=== PATIENT | male | born 1950 | race Caucasian/White ===

== ENCOUNTER 2016-08-31 11:10 | Emergency (ER) | payer MEDICARE ==
[2016-08-31 11:18] VITALS: BP 127/59; PULSE 58; RESP 20; TEMP 98.1
--- NOTE | 2016-08-31 11:36 | ED ---
Extremity Problem HPI - General Chief complaint: Extremity Problem,Nontraumatic Stated complaint: hip pain Time Seen by Provider: 08/31/16 11:26 Source: patient Mode of arrival: wheelchair Limitations: no limitations - History of Present Illness Initial comments: This patient is a 65-year-old man who presents with complaint that he thinks that his left hip replacement may be wearing out. The patient states that over the past few months he has been hearing noises when he walks, and he states that he seems to be losing some range of motion. He states that the hip also aches at times. Patient states that he had a replacement approximately [address] Parra, and he has not recently followed up with anyone. Patient denies symptoms of infection, including no fever or chills, no erythema , redness or swelling. He has been able to bear weight. He states that he does occasionally get some aching though it is not terrible today. He does also appear some grinding in the hip at times when he walks, though other times the noises is not there. MD Complaint: joint paint -: week(s) Location: left (Hip) History of Same: Yes -: Yes arthralgia Quality: dull Consistency: intermittent Improves with: nothing Worsens with: walking Associated Symptoms: denies other symptoms - Related Data Home Medications Medication Instructions Recorded Confirmed Aspirin 81 mg PO DAILY 09/16/14 08/31/16 Atenolol [Tenormin] 25 mg PO DAILY 09/16/14 08/31/16 Atorvastatin [Lipitor] 40 mg PO HS 01/16/16 08/31/16 Isosorbide Mononitrate ER [Imdur] 60 mg PO DAILY 01/16/16 08/31/16 Lisinopril [Zestril] 20 mg PO DAILY 01/16/16 08/31/16 Ibuprofen [Motrin] 800 mg PO Q8H PRN 08/31/16 08/31/16 Nitroglycerin Sl Tabs [Nitrostat] 0.4 mg SUBLINGUAL Q5M PRN 08/31/16 08/31/16 Previous Rx's Medication Instructions Recorded Ibuprofen [Motrin] 600 mg PO Q8HR PRN #20 tab 08/31/16 Allergies Allergy/AdvReac Type Severity Reaction Status Date / Time No Known Allergies Allergy Verified 08/31/16 11:55 Review of Systems ROS Statement: Those systems with pertinent positive or pertinent negative responses have been documented in the HPI. ROS Other: All systems not noted in ROS Statement are negative. Constitutional: Denies: fever, chills Respiratory: Denies: cough, dyspnea Cardiovascular: Denies: chest pain, palpitations Musculoskeletal: Reports: as per HPI, arthralgia. Denies: back pain, joint swelling Skin: Denies: rash, lesions Neurological: Denies: weakness, numbness Past Medical History Past Medical History: Chest Pain / Angina, CVA/TIA, Hyperlipidemia, Hypertension , Osteoarthritis (OA) Additional Past Medical History / Comment(s): CVA-15 yrs ago-no effects from, History of Any Multi-Drug Resistant Organisms: None Reported Past Surgical History: Appendectomy, Heart Catheterization With Stent, Joint Replacement Additional Past Surgical History / Comment(s): jeffery hip replacements, deviated septum, Past Anesthesia/Blood Transfusion Reactions: No Reported Reaction Date of Last Stent Placement:: 15 yrs ago approx Past Psychological History: No Psychological Hx Reported Smoking Status: Former smoker Past Alcohol Use History: None Reported Past Drug Use History: Marijuana - Past Family History Mother Family Medical History: Cancer Additional Family Medical History / Comment(s): blood clot- not sure in legs or lungs Father Family Medical History: Cancer General Exam Limitations: no limitations General appearance: alert, in no apparent distress Extremities exam: Present: normal inspection, full ROM, normal capillary refill. Absent: tenderness, pedal edema, joint swelling, calf tenderness Back exam: Absent: vertebral tenderness Neurological exam: Present: alert. Absent: motor sensory deficit Skin exam: Present: warm, dry, intact, normal color. Absent: rash Course Vital Signs 08/31/16 11:16 Temperature 98.1 F Pulse Rate 58 L Respiratory 20 Rate Blood Pressure 127/59 O2 Sat by Pulse 98 Oximetry Medical Decision Making - Medical Decision Making Discussed x-ray finding with the patient and recommendation that he see orthopedic surgery, I suspect he will need replacement of the prosthetic hip Disposition Clinical Impression: Hip pain, left Disposition: HOME SELF-CARE Condition: Fair Instructions: Hip Pain (ED) Prescriptions: Ibuprofen [Motrin] 600 mg PO Q8HR PRN #20 tab PRN Reason: Pain Referrals: Harris Arango III, MD [Primary Care Provider] - 1-2 days Slava Mccullough MD [STAFF PHYSICIAN] - 1-2 days
--- NOTE | 2016-08-31 11:59 | XR ---
EXAMINATION TYPE: XR Hip Complete LT DATE OF EXAM: 08/31/2016 CLINICAL HISTORY: pain TECHNIQUE: AP and frogleg views of the left hip are obtained. COMPARISON: None. FINDINGS: Noted are changes of left total hip arthroplasty. Femoral component does not appear to be c entered within the acetabular component and a degree of subluxation is difficult to exclude. Correlat e clinically and if felt to be indicated consider CT. I do not see evidence for an acute fracture. IMPRESSION: 1. Femoral component does not appear to be centered within the acetabular component and a degree of subluxation is difficult to exclude. Correlate clinically and if felt to be indicated consider a CT.
== END 2016-08-31 12:22 | disposition home or self-care (01) ==
LOC: EC 11:10
DX: M25.552 Pain in left hip (principal); E78.5 Hyperlipidemia, unspecified; I10 Essential (primary) hypertension; M19.90 Unspecified osteoarthritis, unspecified site; Z87.891 Personal history of nicotine dependence; Z79.82 Long term (current) use of aspirin; Z79.899 Other long term (current) drug therapy; Z96.643 Presence of artificial hip joint, bilateral; Z86.79 Personal history of other diseases of the circulatory system
CPT/HCPCS: 73502; 99283

== ENCOUNTER 2016-09-24 10:23 | Observation (INO) | payer MEDICARE ==
[2016-09-24] MEDS ORDERED: SODIUM CHLORIDE 0.9% 500 ML IV STA (10:45)
[2016-09-24] MEDS ORDERED: SODIUM CHLORIDE 0.9% 1,000 ML IV STA (10:45)
--- NOTE | 2016-09-24 10:47 | ED ---
General Adult HPI - General Chief complaint: Chest Pain Stated complaint: chest pain Time Seen by Provider: 09/24/16 10:44 Source: patient, RN notes reviewed, old records reviewed Mode of arrival: ambulatory Limitations: no limitations - History of Present Illness Initial comments: This is a 65-year-old male the ER for evaluation today of chest pain. Patient coming in with 2-3 days of chest pain. Chest pain is anterior heaviness and difficulty breathing. No Tenderness no fevers. Patient does have significant cardiac disease with history of CAD and stents. No central blister sick contacts. No change in medications. - Related Data Home Medications Medication Instructions Recorded Confirmed Aspirin 81 mg PO DAILY 09/16/14 09/24/16 Atenolol [Tenormin] 25 mg PO DAILY 09/16/14 09/24/16 Atorvastatin [Lipitor] 40 mg PO HS 01/16/16 09/24/16 Isosorbide Mononitrate ER [Imdur] 60 mg PO DAILY 01/16/16 09/24/16 Lisinopril [Zestril] 20 mg PO DAILY 01/16/16 09/24/16 Ibuprofen [Motrin] 800 mg PO Q8H PRN 08/31/16 09/24/16 Nitroglycerin Sl Tabs [Nitrostat] 0.4 mg SUBLINGUAL Q5M PRN 08/31/16 09/24/16 Allergies Allergy/AdvReac Type Severity Reaction Status Date / Time No Known Allergies Allergy Verified 09/24/16 10:38 Review of Systems ROS Statement: Those systems with pertinent positive or pertinent negative responses have been documented in the HPI. ROS Other: All systems not noted in ROS Statement are negative. Past Medical History Past Medical History: Chest Pain / Angina, CVA/TIA, Hyperlipidemia, Hypertension , Osteoarthritis (OA) Additional Past Medical History / Comment(s): CVA-15 yrs ago-no effects from, History of Any Multi-Drug Resistant Organisms: None Reported Past Surgical History: Appendectomy, Heart Catheterization With Stent, Joint Replacement Additional Past Surgical History / Comment(s): jeffery hip replacements, deviated septum, Past Anesthesia/Blood Transfusion Reactions: No Reported Reaction Date of Last Stent Placement:: 15 yrs ago approx Past Psychological History: No Psychological Hx Reported Smoking Status: Former smoker Past Alcohol Use History: None Reported Past Drug Use History: None Reported - Past Family History Mother Family Medical History: Cancer Additional Family Medical History / Comment(s): blood clot- not sure in legs or lungs Father Family Medical History: Cancer General Exam Limitations: no limitations General appearance: alert, in no apparent distress Head exam: Present: atraumatic, normocephalic, normal inspection Eye exam: Present: normal appearance, PERRL, EOMI. Absent: scleral icterus, conjunctival injection, periorbital swelling ENT exam: Present: normal exam, mucous membranes moist Neck exam: Present: normal inspection. Absent: tenderness, meningismus, lymphadenopathy Respiratory exam: Present: normal lung sounds bilaterally. Absent: respiratory distress, wheezes, rales, rhonchi, stridor Cardiovascular Exam: Present: regular rate, normal rhythm, normal heart sounds. Absent: systolic murmur, diastolic murmur, rubs, gallop, clicks GI/Abdominal exam: Present: soft, normal bowel sounds. Absent: distended, tenderness, guarding, rebound, rigid Extremities exam: Present: normal inspection, full ROM, normal capillary refill. Absent: tenderness, pedal edema, joint swelling, calf tenderness Back exam: Present: normal inspection Neurological exam: Present: alert, oriented X3, CN II-XII intact Psychiatric exam: Present: normal affect, normal mood Skin exam: Present: warm, dry, intact, normal color. Absent: rash Course Vital Signs 09/24/16 09/24/16 10:26 11:37 Temperature 97.7 F Pulse Rate 57 L 60 Respiratory 18 18 Rate Blood Pressure 170/72 174/76 O2 Sat by Pulse 96 97 Oximetry EKG Findings - EKG Comments: EKG Findings:: EKG shows sinus bradycardia rate of 53, GA 136, QRS 100, QTC 410 Medical Decision Making - Medical Decision Making 60 formality ER for evaluation concerning chest pain. History of heart disease. Initial EKG and troponin were negative. Patient be admitted for cardiac observation, anticoagulation serial troponins and telemetry. - Lab Data Result diagrams: 09/24/16 10:44 09/24/16 10:44 Lab Results 09/24/16 09/24/16 09/24/16 Range/Units 10:44 10:44 10:44 WBC 7.8 (3.8-10.6) k/uL RBC 5.22 (4.30-5.90) m/uL Hgb 15.6 (13.0-17.5) gm/dL Hct 45.6 (39.0-53.0) % MCV 87.4 (80.0-100.0) fL MCH 29.9 (25.0-35.0) pg MCHC 34.2 (31.0-37.0) g/dL RDW 14.4 (11.5-15.5) % Plt Count 259 (150-450) k/uL Neutrophils % 61 % Lymphocytes % 24 % Monocytes % 7 % Eosinophils % 4 % Basophils % 1 % Neutrophils # 4.8 (1.3-7.7) k/uL Lymphocytes # 1.9 (1.0-4.8) k/uL Monocytes # 0.6 (0-1.0) k/uL Eosinophils # 0.3 (0-0.7) k/uL Basophils # 0.1 (0-0.2) k/uL PT (9.0-12.0) sec INR (<1.2) APTT (22.0-30.0) sec D-Dimer (<0.60) mg/L FEU Sodium 140 (137-145) mmol/L Potassium 4.5 (3.5-5.1) mmol/L Chloride 108 H (98-107) mmol/L Carbon Dioxide 23 (22-30) mmol/L Anion Gap 9 mmol/L BUN 21 H (9-20) mg/dL Creatinine 0.80 (0.66-1.25) mg/dL Est GFR (MDRD) Af Amer >60 (>60 ml/min/1.73 sqM) Est GFR (MDRD) Non-Af >60 (>60 ml/min/1.73 sqM) Glucose 96 (74-99) mg/dL Calcium 9.6 (8.4-10.2) mg/dL Magnesium 2.2 (1.6-2.3) mg/dL Total Bilirubin 0.6 (0.2-1.3) mg/dL AST 36 (17-59) U/L ALT 74 H (21-72) U/L Alkaline Phosphatase 101 (38-126) U/L Total Creatine Kinase 56 (55-170) U/L CK-MB (CK-2) 0.4 (0.0-2.4) ng/mL CK-MB (CK-2) Rel Index 0.7 Troponin I <0.012 (0.000-0.034) ng/mL Total Protein 7.0 (6.3-8.2) g/dL Albumin 4.2 (3.5-5.0) g/dL Lipase 61 (23-300) U/L 09/24/16 Range/Units 10:44 WBC (3.8-10.6) k/uL RBC (4.30-5.90) m/uL Hgb (13.0-17.5) gm/dL Hct (39.0-53.0) % MCV (80.0-100.0) fL MCH (25.0-35.0) pg MCHC (31.0-37.0) g/dL RDW (11.5-15.5) % Plt Count (150-450) k/uL Neutrophils % % Lymphocytes % % Monocytes % % Eosinophils % % Basophils % % Neutrophils # (1.3-7.7) k/uL Lymphocytes # (1.0-4.8) k/uL Monocytes # (0-1.0) k/uL Eosinophils # (0-0.7) k/uL Basophils # (0-0.2) k/uL PT 10.0 (9.0-12.0) sec INR 1.0 (<1.2) APTT 23.2 (22.0-30.0) sec D-Dimer 0.76 H (<0.60) mg/L FEU Sodium (137-145) mmol/L Potassium (3.5-5.1) mmol/L Chloride (98-107) mmol/L Carbon Dioxide (22-30) mmol/L Anion Gap mmol/L BUN (9-20) mg/dL Creatinine (0.66-1.25) mg/dL Est GFR (MDRD) Af Amer (>60 ml/min/1.73 sqM) Est GFR (MDRD) Non-Af (>60 ml/min/1.73 sqM) Glucose (74-99) mg/dL Calcium (8.4-10.2) mg/dL Magnesium (1.6-2.3) mg/dL Total Bilirubin (0.2-1.3) mg/dL AST (17-59) U/L ALT (21-72) U/L Alkaline Phosphatase (38-126) U/L Total Creatine Kinase (55-170) U/L CK-MB (CK-2) (0.0-2.4) ng/mL CK-MB (CK-2) Rel Index Troponin I (0.000-0.034) ng/mL Total Protein (6.3-8.2) g/dL Albumin (3.5-5.0) g/dL Lipase (23-300) U/L - Radiology Data Radiology results: report reviewed, image reviewed Critical Care Time Critical Care Time: Yes Total Critical Care Time: 31 Disposition Clinical Impression: Chest pain Disposition: ADMITTED IP TO THIS HOSP Condition: Undetermined Instructions: Chest Pain (ED) Referrals: Harris Arango III, MD [Primary Care Provider] - 1-2 days
[2016-09-24 11:00] LABS: Basophils # (A) 0.1 k/uL (0-0.2); Basophils % (A) 1 %; CH 29.6; CHCM 34.1; Eosinophils # (A) 0.3 k/uL (0-0.7); Eosinophils % (A) 4 %; HCT 45.6 % (39.0-53.0); HGB 15.6 gm/dL (13.0-17.5); Luc # (Auto) 0.23; Luc % (Auto) 3; Lymphocytes # (A) 1.9 k/uL (1.0-4.8); Lymphocytes % (A) 24 %; MCH 29.9 pg (25.0-35.0); MCHC 34.2 g/dL (31.0-37.0); MCV 87.4 fL (80.0-100.0); Mean Platelet Volume 8.7; Monocytes # (A) 0.6 k/uL (0-1.0); Monocytes % (A) 7 %; Neutrophils # (A) 4.8 k/uL (1.3-7.7); Neutrophils % (A) 61 %; RBC 5.22 m/uL (4.30-5.90); RDW 14.4 % (11.5-15.5); WBC 7.8 k/uL (3.8-10.6); WBC (Perox) 7.32
[2016-09-24 11:13] LABS: ALT 74 U/L (21-72); AST 36 U/L (17-59); Alkaline Phosphatase 101 U/L (38-126); Anion Gap 9 mmol/L; Blood Urea Nitrogen 21 mg/dL (9-20); Calcium 9.6 mg/dL (8.4-10.2); Carbon Dioxide 23 mmol/L (22-30); Chloride 108 mmol/L (98-107); Glucose 96 mg/dL (74-99); Magnesium 2.2 mg/dL (1.6-2.3); Non-African American GFR(MDRD) >60 (>60 ml/min/1.73 sqM); Potassium 4.5 mmol/L (3.5-5.1); Sodium 140 mmol/L (137-145); Total Bilirubin 0.6 mg/dL (0.2-1.3)
[2016-09-24 11:14] LABS: Partial Thromboplastin Time 23.2 sec (22.0-30.0)
[2016-09-24 11:20] LABS: Creatine Kinase 56 U/L (55-170)
[2016-09-24 11:32] LABS: Creatine Kinase MB 0.4 ng/mL (0.0-2.4); Troponin I <0.012 ng/mL (0.000-0.034)
--- NOTE | 2016-09-24 11:38 | XR ---
EXAMINATION TYPE: XR chest 2V DATE OF EXAM: 09/24/2016 COMPARISON: April 15, 2013 HISTORY: Shortness of breath TECHNIQUE: Frontal and lateral views of the chest are obtained. FINDINGS: Scattered senescent parenchymal changes noted. Hyperinflation compatible with COPD. No evidence for infiltrate. No evidence for atelectasis. Heart size is stable. Mediastinal structures are stable and grossly unremarkable. No evidence for hilar prominence. Degenerative changes dorsal spine. IMPRESSION: 1. No evidence for acute pulmonary disease.
[2016-09-24] MEDS ORDERED: HEPARIN SODIUM,PORCINE 5,000 UNIT/ML 1 ML VIAL IV ONE (12:44)
[2016-09-24] MEDS ORDERED: NITROGLYCERIN SL TABS 0.4 MG TAB SUBLINGUAL PRN ×2 (12:44→14:08)
[2016-09-24] MEDS ORDERED: HEPARIN SODIUM,PORCINE 5,000 UNIT/ML 1 ML VIAL IV PRN (12:44)
[2016-09-24] MEDS ORDERED: HEPARIN SODIUM,PORCINE/D5W PMX 25,000 UNIT in DEXTROSE/WATER 1 500ML.BAG IV SCH (12:45)
[2016-09-24] MEDS ORDERED: RX INFO: IV CONTRAST WAS GIVEN 1 EACH MISC MISCELLANE PRN (15:42)
--- NOTE | 2016-09-24 16:13 | P.HPIM ---
History of Present Illness 65-year-old man came in with compensative chest pressure like sensation which started today lasted for a few hours minimal chest pain associated with the cough worsens with cough and deep breathing. Patient had similar chest pain in the past in 2008 where she had a coronary cardiac catheterization and stenting at that time. Patient had another cardiac cath in 2013 which did not show any significant occlusive disease. Patient's pain is not associated with food, denied any diaphoresis denies any shortness of breath denied any lightheadedness , denied any cough or runny nose. Review of Systems REVIEW OF SYSTEMS: CONSTITUTIONAL: No fever, no malaise, no fatigue. HEENT: No recent visual problems or hearing problems. Denied any sore throat. CARDIOVASCULAR: No orthopnea, PND, no palpitations, no syncope. PULMONARY: No shortness of breath, no cough, no hemoptysis. GASTROINTESTINAL: No diarrhea, no nausea, no vomiting, no abdominal pain. Normoactive bowel sounds. NEUROLOGICAL: No headaches, no weakness, no numbness. HEMATOLOGICAL: Denies any bleeding or petechiae. GENITOURINARY: Denies any burning micturition, frequency, or urgency. MUSCULOSKELETAL/RHEUMATOLOGICAL: Denies any joint pain, swelling, or any muscle pain. ENDOCRINE: Denies any polyuria or polydipsia. The rest of the 14-point review of systems is negative. Past Medical History Past Medical History: Coronary Artery Disease (CAD), Chest Pain / Angina, COPD, CVA/TIA, Hyperlipidemia, Hypertension, Osteoarthritis (OA) Additional Past Medical History / Comment(s): CVA-15 yrs ago-no residual, alcoholism-has not drank since 2003, arthritis bilateral hips-scheduled for 2nd total L hip in 2 weeks, diverticular disease, colon polyps-benign, chronic bronchitits. History of Any Multi-Drug Resistant Organisms: None Reported Past Surgical History: Appendectomy, Heart Catheterization, Heart Catheterization With Stent, Joint Replacement Additional Past Surgical History / Comment(s): jeffery hip replacements, deviated septum sx, colonoscopy/polypectomy, EGD Past Anesthesia/Blood Transfusion Reactions: No Reported Reaction Date of Last Stent Placement:: 2000 Past Psychological History: No Psychological Hx Reported Additional Psychological History / Comment(s): Pt resides with another adult. He uses a cane to ambulate. He drives. Smoking Status: Former smoker Past Alcohol Use History: None Reported Additional Past Alcohol Use History / Comment(s): Pt started smoking in 1967 and quit in 2012. He was a 1-2 PPD smoker. He is a recovered alcoholic. He last drank in 2003. Past Drug Use History: None Reported Additional Drug Use History / Comment(s): Pt used to smoke marijuana pretty much daily. He states he is quiting and last smoked 2 weeks ago. - Past Family History Mother Family Medical History: Coronary Artery Disease (CAD) Additional Family Medical History / Comment(s): CABG. Mother at the age of 80 yrs. Father Family Medical History: Cancer Additional Family Medical History / Comment(s): Father had colon cancer. He at the age of 60yrs. Medications and Allergies Home Medications Medication Instructions Recorded Confirmed Type Aspirin 81 mg PO DAILY 09/16/14 09/24/16 History Atenolol [Tenormin] 25 mg PO DAILY 09/16/14 09/24/16 History Atorvastatin [Lipitor] 40 mg PO HS 01/16/16 09/24/16 History Isosorbide Mononitrate ER [Imdur] 60 mg PO DAILY 01/16/16 09/24/16 History Lisinopril [Zestril] 20 mg PO DAILY 01/16/16 09/24/16 History Ibuprofen [Motrin] 800 mg PO Q8H PRN 08/31/16 09/24/16 History Nitroglycerin Sl Tabs [Nitrostat] 0.4 mg SUBLINGUAL Q5M PRN 08/31/16 09/24/16 History Allergies Allergy/AdvReac Type Severity Reaction Status Date / Time No Known Allergies Allergy Verified 09/24/16 10:38 Physical Exam Vitals: Vital Signs Temp Pulse Pulse Resp BP BP Pulse Ox 09/24/16 16:00 97.8 F 61 16 119/58 95 09/24/16 13:22 97.5 F L 51 L 16 149/69 96 09/24/16 13:00 98.0 F 51 L 20 143/64 99 09/24/16 11:37 60 18 174/76 97 09/24/16 10:26 97.7 F 57 L 18 170/72 96 Intake and Output 09/24/16 09/24/16 09/24/16 06:59 14:59 22:59 Other: Weight 82.6 kg Patient Weight 09/25/16 06:59 Weight 82.6 kg PHYSICAL EXAMINATION: GENERAL: The patient is alert and oriented x3, not in any acute distress. Well developed, well nourished. HEENT: Pupils are round and equally reacting to light. EOMI. No scleral icterus. No conjunctival pallor. Normocephalic, atraumatic. No pharyngeal erythema. No thyromegaly. CARDIOVASCULAR: S1 and S2 present. No murmurs, rubs, or gallops. PULMONARY: Chest is clear to auscultation, no wheezing or crackles. ABDOMEN: Soft, nontender, nondistended, normoactive bowel sounds. No palpable organomegaly. MUSCULOSKELETAL: No joint swelling or deformity. EXTREMITIES: No cyanosis, clubbing, or pedal edema. NEUROLOGICAL: Gross neurological examination did not reveal any focal deficits. SKIN: No rashes. Results CBC & Chem 7: 09/24/16 10:44 09/24/16 10:44 Labs: Abnormal Lab Results - Last 24 Hours (Table) 09/24/16 09/24/16 Range/Units 10:44 10:44 D-Dimer 0.76 H (<0.60) mg/L FEU Chloride 108 H (98-107) mmol/L BUN 21 H (9-20) mg/dL ALT 74 H (21-72) U/L Thrombosis Risk Factor Assmnt - Choose All That Apply Any of the Below Risk Factors Present?: Yes Each Factor Represents 1 point: Abnormal pulmonary function (COPD) Other Risk Factors: Yes Each Risk Factor Represents 2 Points: Age 61-74 years Other congenital or acquired thrombophilia - If yes, enter type in comment: No Thrombosis Risk Factor Assessment Total Risk Factor Score: 3 Thrombosis Risk Factor Assessment Level: Moderate Risk Assessment and Plan Plan: 1 chest pain: Patient is admitted to rule out acute coronary syndromes and unstable angina, will obtain 2 more sets of troponin, EKG. Cardiology will let the patient patient may need a stress test cardiac catheterization considering his previous history of myocardial infarction and stenting in the past. As chest pain is pleuritic in nature the 2 other possibilities being pulmonary embolism although d-dimer is minimally elevated, still get a CT angios of the chest to rule out pulmonary embolism. The other possibility being pleurisy. #2 hypertension #3 hyperlipidemia #4 history of coronary artery disease in the past.
--- NOTE | 2016-09-24 16:37 | CT ---
CT CHEST FOR PULMONARY EMBOLISM. EXAMINATION TYPE: CT chest angio for PE DATE OF EXAM: 09/24/2016 INDICATION: Chest pain and shortness of breath CT DLP: 654 mGycm, Automated exposure control for dose reduction was used. CONTRAST: Patient injected with 100 mL of Omnipaque 350. COMPARISON: NONE TECHNIQUE: CT of the chest is performed on a spiral scan at 2 mm thick sections. Study is performed with intravenous contrast timed for evaluation for pulmonary embolism. This will limit additional po rtions of the evaluation. 3-D MIP images reconstructed by the technologist are reviewed on the compu ter in the coronal and sagittal planes. FINDINGS: No persistent filling defects are evident to suggest an acute pulmonary embolism. No mediastinal or hilar adenopathy enlarged by CT criteria is evident. The ascending aorta diameter at the level of the main pulmonary artery is 3.7 cm. The main pulmonary artery diameter at the bifur cation is 2.7 cm. Vascular calcification is within the aorta. There is a 1.3 cm spiculated mass in the right suprahilar region. Series 7 image 58. Areas suspicious for neoplasm, additional workup is recommended. There is some stranding within the right middle lobe may be atelectasis. Additional soft tissue densi ty is not excluded. This area would measure 1.0 cm on mediastinal windows. Series [address] section through the upper abdomen are unremarkable. IMPRESSIONS: 1. Two areas of soft tissue density within the right lung in the right suprahilar region within the a nterior right middle lobe. Workup for neoplasm is recommended. Consider PET CT for additional evaluat ion. 2. No acute pulmonary embolism.
[2016-09-24 18:25] LABS: Creatine Kinase 50 U/L (55-170)
[2016-09-24 18:39] LABS: Creatine Kinase MB 0.4 ng/mL (0.0-2.4); Troponin I <0.012 ng/mL (0.000-0.034)
[2016-09-24] MEDS ORDERED: ATORVASTATIN 40 MG TAB PO SCH (21:00)
[2016-09-24 23:13] LABS: Creatine Kinase 90 U/L (55-170)
[2016-09-24 23:25] LABS: Creatine Kinase MB 0.6 ng/mL (0.0-2.4); Troponin I <0.012 ng/mL (0.000-0.034)
[2016-09-25 03:29] LABS: Cholesterol 133 mg/dL (<200); HDL Cholesterol 45 mg/dL (40-60)
[2016-09-25] MEDS ORDERED: DOBUTamine DRIP for NUC MED 500 MG in DEXTROSE/WATER 1 250ML.BAG IV ONE (08:16)
--- NOTE | 2016-09-25 08:51 | CONS ---
Paul is a 65 year old gentleman with history of coronary artery disease status post prior angioplasty in 2013 involving the proximal right coronary artery who presented to the hospital complaining of chest discomfort. He describes it as a tightness involving the right side of his chest that gets worse with deep breathing and sometimes with movements. He is admitted to the hospital with unstable angina. His EKG does not reveal ischemic changes and he ruled out for myocardial infarction. At the time of my evaluation this morning, he is pain free, hemodynamically stable and in no apparent distress. He had a CT scan of the chest which I reviewed and does not have pulmonary embolism. Allergies: There are no known drug allergies. PAST MEDICAL HISTORY: Significant for hypertension, dyslipidemia, coronary artery disease, status post angioplasty. Current medications include: 1. Aspirin 81 mg daily. 2. Atenolol 25 mg daily. 3. Lipitor 40 daily. 4. Motrin. 5. Imdur 60 daily. 6. Lisinopril 20 daily. 7. Sublingual nitroglycerine on a prn basis. FAMILY HISTORY: Negative for premature coronary artery disease. SOCIAL HISTORY: Negative for current smoking. ETOH abuse or drug abuse. REVIEW OF SYSTEMS: HEENT: unremarkable. CARDIAC: As described above. RESPIRATORY: As described above. GI: Negative. : Negative. ALLERGY: Negative. SKIN: Negative. ENDOCRINOLOGICAL: Negative. DERM: Negative. HEMATOLOGICAL: Negative. ONCOLOGICAL: Negative. CONSTITUTIONAL: Negative. The rest of the system review is not relevant. On exam, comfortable at rest. Vital signs are stable. There is no jugular venous distention. Carotid upstroke is normal. There is no bruit. Chest was clear to auscultation and percussion. Heart exam reveals first and second heart sounds. No gallop. No murmur. No rub. Abdomen is soft, nontender. Examination of the extremities did not reveal any edema. Peripheral pulses are felt. Labs show a potassium of 4.5. Creatinine 0.8. Three sets of cardiac enzymes are negative. LDL cholesterol 59. Hemoglobin 15.6. EKG does not reveal ischemic changes. D. dimer was slightly elevated but CT chest is negative. ASSESSMENT: 1. Chest pain in a patient with known CAD status angioplasty of right coronary artery. 2. Hypertension. 3. Dyslipidemia. PLAN: I will perform a dobutamine echo on him. If it is negative, he can be discharged home and he will follow up with me in the outpatient setting. FLORENCIA
[2016-09-25] MEDS ORDERED: ISOSORBIDE MONONITRATE ER 60 MG TAB.ER.24H PO SCH (09:00)
[2016-09-25] MEDS ORDERED: ATENOLOL 25 MG TAB PO SCH (09:00)
[2016-09-25] MEDS ORDERED: ASPIRIN 325 MG TAB PO SCH (09:00)
[2016-09-25] MEDS ORDERED: LISINOPRIL 20 MG TAB PO SCH (09:00)
--- NOTE | 2016-09-25 10:23 | ECHOF ---
Referral Reason: MEASUREMENTS -------- HEIGHT: 157.5 cm WEIGHT: 82.5 kg BP: RVIDd: 2.4 cm (< 3.3) IVSd: 1.2 cm (0.6 - 1.1) LVIDd: 5.5 cm (3.9 - 5.3) LVPWd: 1.0 cm (0.6 - 1.1) IVSs: 1.6 cm LVIDs: 4.0 cm LVPWs: 1.4 cm LA Diam: 4.3 cm (2.7 - 3.8) LAESV Index (A-L): 25.08 ml/m Ao Diam: 3.3 cm (2.0 - 3.7) AV Cusp: 1.8 cm (1.5 - 2.6) LA Diam: 3.4 cm (2.7 - 3.8) MV EXCURSION: 24.599 mm (> 18.000) MV EF SLOPE: 63 mm/s (70 - 150) EPSS: 0.6 cm MV E Derik: 0.64 m/s MV DecT: 149 ms MV A Derik: 0.46 m/s MV E/A Ratio: 1.39 AV maxP.39 mmHg AV meanP.72 mmHg RAP: 5.00 mmHg RVSP: 14.59 mmHg FINDINGS -------- Sinus rhythm. This was a technically adequate study. The left ventricular size is normal. There is mild concentric left ventricular hypertrophy. Overall left ventricular systolic function is normal with, an EF between 55 - 60 %. The right ventricle is normal in size. Normal LA size by volume 22+/-6 ml/m2. The right atrial size is normal. There is moderate aortic valve sclerosis. There is moderate aortic regurgitation. Peak/mean gradient across the Aortic Valve is 17.39mmHg / 10.72mmHg. Aov is stenotic with decrease opening. Mild mitral regurgitation is present. Moderate thickening of the anterior mitral valve leaflet. Trace tricuspid regurgitation present. There is no evidence of pulmonary hypertension. The right ventricular systolic pressure, as measured by Doppler, is 14.59mmHg. There is no pulmonic regurgitation present. The aortic root size is normal. There is no pericardial effusion. CONCLUSIONS -------- 1. Sinus rhythm. 2. Mild mitral regurgitation is present. 3. Moderate thickening of the anterior mitral valve leaflet. 4. Trace tricuspid regurgitation present. 5. There is no evidence of pulmonary hypertension. 6. There is no pulmonic regurgitation present. 7. The aortic root size is normal. 8. There is no pericardial effusion. 9. This was a technically adequate study. 10. There is mild concentric left ventricular hypertrophy. 11. Overall left ventricular systolic function is normal with, an EF between 55 - 60 %. 12. Normal LA size by volume 22+/-6 ml/m2. 13. There is moderate aortic valve sclerosis. 14. There is moderate aortic regurgitation. 15. Peak/mean gradient across the Aortic Valve is 17.39mmHg / 10.72mmHg. 16. Aov is stenotic with decrease opening. GELATIN POWDER MIXER: Monica Lorenzo RDCS
--- NOTE | 2016-09-25 11:13 | ECHOF ---
Referral Reason:chest pain MEASUREMENTS -------- HEIGHT: 180.3 cm WEIGHT: 82.5 kg BP: 136/60 WallScoring: string WallScoring: string WallScoring: string WallScoring: string FINDINGS -------- The patient received intravenous dobutamine in 5 min (low dose 5mcg/kg/min) and 3 minute stages (>5mcg/kg/min) to a maximum of 40mcg/kg/min plus 0 mg atropine. Max Heart Rate: 135 % of Max Predicted Heart Rate: 86 Rest Heart Rate:53 Rest BP: 93/39 Max BP:17/49 Mets Achieved: Not aplicable The test was stopped because the target heart rate was achieved. Sinus rhythm. In response to stress, the ECG showed ischemic ST changes (see exercise report for details). [address] depression. In response to stress, the ECG showed no ST-T wave changes (see exercise report for details). There were normal blood pressure and heart rate responses to stress. LV size, wall thickness and systolic function are normal, with an EF of 60%. At recovery dobutamine stress there was appropriate augmentation of systolic function of all segments with decrease in cavity size. CONCLUSIONS -------- 1. In response to stress, the ECG showed ischemic ST changes (see exercise report for details). 2. [address] depression. 3. No 2D echocardiographic evidence of inducible ischemia to achieved workload. THROAT CUTTER: Yamel Apodaca RDCS
[2016-09-25 12:02] VITALS: RESP 16
[2016-09-25 16:07] VITALS: BP 114/51; PULSE 69; TEMP 97.5
--- NOTE | 2016-09-25 16:27 | EST ---
Referral Reason:chest pain MEASUREMENTS -------- HEIGHT: 180.3 cm WEIGHT: 82.5 kg BP: 136/60 FINDINGS -------- The patient received intravenous dobutamine in 5 min (low dose 5mcg/kg/min) and 3 minute stages (>5mcg/kg/min) to a maximum of 40mcg/kg/min plus 0 mg atropine. Max Heart Rate: 135 % of Max Predicted Heart Rate: 86 Rest Heart Rate:53 Rest BP: 93/39 Max BP:17/49 Mets Achieved: Not aplicable The test was stopped because the target heart rate was achieved. Sinus rhythm. In response to stress, the ECG showed ischemic ST changes (see exercise report for details). [address] depression. In response to stress, the ECG showed no ST-T wave changes (see exercise report for details). There were normal blood pressure and heart rate responses to stress. LV size, wall thickness and systolic function are normal, with an EF of 60%. At recovery dobutamine stress there was appropriate augmentation of systolic function of all segments with decrease in cavity size. CONCLUSIONS -------- 1. In response to stress, the ECG showed ischemic ST changes (see exercise report for details). 2. [address] depression. 3. No 2D echocardiographic evidence of inducible ischemia to achieved workload. URGENT CARE: Yamel Apodaca RDCS [facility]ENTER[facility]ahrzad
--- NOTE | 2016-09-25 16:31 | P.DS ---
Providers Date of admission: 09/24/16 12:44 Attending physician: Suraj Redding Consults: 09/24/16 12:44 Consult Physician Urgent Consulting Provider: Peter Lopez Consult Reason/Comments: cp Do you want consulting provider notified?: Yes Primary care physician: Harris [facility] Course: 65-year-old came in with chest pain ruled out acute coronary syndromes and patient underwent stress test which is negative patient is being discharged today in stable medical condition to home patient may have either pleurisy or musculoskeletal chest pain patient is already on ibuprofen and I'll add Zantac for 15 days to avoid any GI issues. Patient will be discharged today. #2 hypertension #3 hyperlipidemia #4 history of coronary artery disease in the past. Patient Condition at Discharge: Undetermined Plan - Discharge Summary New Discharge Prescriptions: New Ranitidine HCl [Zantac] 150 mg PO BID #30 tab No Action Atenolol [Tenormin] 25 mg PO DAILY Aspirin 81 mg PO DAILY Lisinopril [Zestril] 20 mg PO DAILY Isosorbide Mononitrate ER [Imdur] 60 mg PO DAILY Atorvastatin [Lipitor] 40 mg PO HS Nitroglycerin Sl Tabs [Nitrostat] 0.4 mg SUBLINGUAL Q5M PRN PRN Reason: Chest Pain Ibuprofen [Motrin] 800 mg PO Q8H PRN PRN Reason: Pain Discharge Medication List Aspirin 81 mg PO DAILY 09/16/14 [History] Atenolol [Tenormin] 25 mg PO DAILY 09/16/14 [History] Atorvastatin [Lipitor] 40 mg PO HS 01/16/16 [History] Isosorbide Mononitrate ER [Imdur] 60 mg PO DAILY 01/16/16 [History] Lisinopril [Zestril] 20 mg PO DAILY 01/16/16 [History] Ibuprofen [Motrin] 800 mg PO Q8H PRN 08/31/16 [History] Nitroglycerin Sl Tabs [Nitrostat] 0.4 mg SUBLINGUAL Q5M PRN 08/31/16 [History] Ranitidine HCl [Zantac] 150 mg PO BID #30 tab 09/25/16 [Rx] Follow up Appointment(s)/Referral(s): Denver Shelton MD [STAFF PHYSICIAN] - 10/13/16 2:15 pm Harris Arango III, MD [Primary Care Provider] - 3 Days Patient Instructions/Handouts: Chest Pain (ED)
== END 2016-09-25 16:54 | disposition home or self-care (01) ==
LOC: EC 10:23 → 3OBS 12:44
PROVIDERS: ADMIT Hospitalist; ATTEND Hospitalist
DX: R07.89 Other chest pain (principal); I25.10 Atherosclerotic heart disease of native coronary artery without angina pectoris; I10 Essential (primary) hypertension; E78.5 Hyperlipidemia, unspecified; F10.21 Alcohol dependence, in remission; Z95.5 Presence of coronary angioplasty implant and graft; I25.2 Old myocardial infarction; Z79.82 Long term (current) use of aspirin; Z79.899 Other long term (current) drug therapy; Z87.891 Personal history of nicotine dependence; Z86.73 Personal history of transient ischemic attack (TIA), and cerebral infarction without residual deficits
CPT/HCPCS: 96376 ×3; 96361 ×2; 96365 ×2; 99291 ×2; 36415; 93005; 93017; 93306; 93350; 85379; 80061; 80053; 82550; 82553; 83690; 83735; 84484; 85025; 85049; 85610; 85730 ×2; 71020; 71275; G0378 ×2; J1250; J1644 ×2; Q9967

== ENCOUNTER → 2016-10-07 | Outpatient (CLI) | payer MEDICARE ==
[2016-10-07 10:48] LABS: Appearance,Urine Clear (Clear); Bilirubin,Urine Negative (Negative); Glucose,Urine (UA) Negative (Negative); Ketones,Urine Negative (Negative); Leukocyte Esterase,Urine Negative (Negative); Nitrite,Urine Negative (Negative); Protein,Urine Negative (Negative); Specific Gravity,Urine 1.014 (1.001-1.035); UA Billing (MACRO vs. MICRO) CHEM; Urobilinogen,Urine <2.0 mg/dL (<2.0)
[2016-10-07 10:50] LABS: CH 29.4; CHCM 33.3; HCT 45.8 % (39.0-53.0); HDW 2.43; MCH 28.9 pg (25.0-35.0); MCHC 32.7 g/dL (31.0-37.0); MCV 88.5 fL (80.0-100.0); Mean Platelet Volume 8.4; RBC 5.17 m/uL (4.30-5.90); RDW 14.7 % (11.5-15.5); WBC 7.6 k/uL (3.8-10.6)
[2016-10-07 10:52] LABS: INR 0.9 (<1.2); Prothrombin Time 9.6 sec (9.0-12.0)
[2016-10-07 11:07] LABS: ALT 74 U/L (21-72); AST 34 U/L (17-59); Alkaline Phosphatase 109 U/L (38-126); Anion Gap 11 mmol/L; Blood Urea Nitrogen 23 mg/dL (9-20); Calcium 9.7 mg/dL (8.4-10.2); Carbon Dioxide 26 mmol/L (22-30); Chloride 103 mmol/L (98-107); Glucose 116 mg/dL (74-99); Non-African American GFR(MDRD) >60 (>60 ml/min/1.73 sqM); Potassium 4.5 mmol/L (3.5-5.1); Sodium 140 mmol/L (137-145); Total Bilirubin 0.6 mg/dL (0.2-1.3); Total Protein 7.1 g/dL (6.3-8.2)
== END | disposition home or self-care (01) ==
LOC: LABPAT 09:56
PROVIDERS: ATTEND Orthopaedic Surgery
DX: Z01.810 Encounter for preprocedural cardiovascular examination (principal); Z01.812 Encounter for preprocedural laboratory examination
CPT/HCPCS: 80053; 81003; 85027; 85610; 85730; 87070

== ENCOUNTER 2016-10-12 10:40 | Inpatient (IN) | payer MEDICARE ==
[2016-10-06 10:50] VITALS: BMI 25.4
[~2016-10-12 10:40] MED LIST: ACETAMINOPHEN TAB 500 MG TAB PO ONE; DEXAMETHASONE SOD PHOSPHATE 10 MG/ML 1 ML VIAL IV ONE; HYDROmorphone 1 MG/ML 1 ML SYRINGE IVP PRN; MELOXICAM 7.5 MG TAB PO ONE; MIDAZOLAM 2 MG/2 ML VIAL IV PRN; ONDANSETRON 4 MG/2 ML VIAL IVP ONE; SCOPOLAMINE 1.5MG/72HR PATCH TRANSDERM ONE; TRANEXAMIC ACID 1,000 MG in SODIUM CHLORIDE 0.9% 100 ML IVPB ONE; ceFAZolin 2 GM in SODIUM CHLORIDE 0.9% 100 ML IVPB ONE
[2016-10-12 11:05] VITALS: RESP 16
[2016-10-12] MEDS: LACTATED RINGERS 1,000 ML IV SCH ×2 (11:13→21:48)
[2016-10-12] MEDS ORDERED: LIDOCAINE 1% 20 ML VIAL (10MG/ML) FOR IV START INTRADERMA ONE (11:14)
[2016-10-12] MEDS ORDERED: ROPIVACAINE 246.25 MG, EPINEPHrine 0.5 MG, KETOROLAC 30 MG, cloNIDine HCL/PF 80 MCG, WA... MISCELLANE ONE ×5 (11:47)
[2016-10-12] MEDS ORDERED: ceFAZolin 3,000 MG in SODIUM CHLORIDE 0.9% IRRIGATIO 3,000 ML IRRIGATION ONE (12:36)
[2016-10-12] MEDS ORDERED: HEPARIN SODIUM,PORCINE 10,000 UNIT/ML 1 ML VIAL ONE (12:36)
[2016-10-12] MEDS ORDERED: PROPOFOL 10 MG/ML 20 ML VIAL IV ONE (12:36)
[2016-10-12] MEDS ORDERED: fentaNYL (PF) 50 MCG/ML 2 ML AMP ONE (12:36)
[2016-10-12] MEDS ORDERED: SODIUM CHLORIDE 0.9% IRRIG 1,000 ML BTL IRRIGATION ONE (12:36)
[2016-10-12] MEDS ORDERED: MIDAZOLAM 2 MG/2 ML VIAL ONE (12:36)
[2016-10-12] MEDS ORDERED: PHENYLEPHRINE-0.9% NACL SYG 1 MG/10 ML SYRINGE ONE (12:36)
[2016-10-12] MEDS ORDERED: LACTATED RINGERS 1,000 ML IV ONE (13:57)
[2016-10-12] MEDS ORDERED: MAGNESIUM HYDROXIDE 2,400 MG/10 ML CUP PO PRN (15:08)
[2016-10-12] MEDS ORDERED: NALOXONE 0.4 MG/ML 1 ML VIAL IV PRN (15:08)
[2016-10-12] MEDS ORDERED: ONDANSETRON 4 MG/2 ML VIAL IVP PRN (15:08)
[2016-10-12] MEDS ORDERED: hydrOXYzine PAMOATE 25 MG CAP PO PRN (15:08)
[2016-10-12] MEDS ORDERED: HYDROmorphone 1 MG/ML 1 ML SYRINGE IVP PRN ×3 (15:08)
[2016-10-12] MEDS ORDERED: DIAZEPAM 5 MG TAB PO PRN ×2 (15:08)
[2016-10-12] MEDS ORDERED: HYDROcodone/APAP 5-325MG 1 EACH TAB PO PRN (15:08)
--- NOTE | 2016-10-12 15:34 | XR ---
EXAMINATION TYPE: XR Hip Limited LT DATE OF EXAM: 10/12/2016 COMPARISON: NONE HISTORY: Postop TECHNIQUE: One view submitted. FINDINGS: There is a prosthetic hip in near anatomic alignment. There is soft tissue edema and emphysema. Soft tissue ossification noted. IMPRESSION: 1. Postoperative change. Appears in near-anatomic alignment.
--- NOTE | 2016-10-12 16:04 | P.OP ---
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 0 liner face angle, 32 mm inner diameter, 54 mm outer diameter. Jean Claude VerSys hip system femoral head, 12 x 14 taper, 32 mm x 10.5 mm Vaibhav Simplex P bone cement with tobramycin. The polyethylene liner was cemented, and the articulation is metal on polyethylene. Anesthesia: spinal Surgeon: Campos Muñoz Bow Making Machine Operator #1: Barby Ken Estimated Blood Loss (ml): 100 Pathology: none sent Condition: stable Disposition: PACU Indications for Procedure: This is a 65-year-old gentleman that presented to my office with pain in his left hip. He is had a prior left total hip arthroplasty was done well until recent. X-rays demonstrate complete failure of the polyethylene of his left total hip. The acetabulum and femoral components appear well fixed. After discussion of the surgical nonsurgical treatment options with her at length, he wishes to proceed with a revision total hip arthroplasty. He is aware of the higher risk of a dislocation, secondary to this being a revision procedure. He is also aware of the higher risk of infection. The other risks were discussed at length and informed consent was obtained. Operative Findings: The operative findings are consistent with complete failure of the polyethylene as well as significant polyethylene wear. The femoral and acetabular components were well fixed. Description of Procedure: Patient was seen and evaluated in the preoperative area, consent was reviewed, and the surgical site was marked with a skin marker. Patient was then brought to the operating room and given prophylactic antibiotics intravenously. 1 g of Tranexamic acid was also given. A spinal anesthetic was administered by the anesthesia department. The patient was then placed on the operative table and placed in the lateral decubitus position with the bony prominences well-padded. The hip area was then prepped and draped in usual sterile fashion. A universal timeout was then performed, which confirmed the patient's name, surgical site, ALLERGIES, and procedure being performed. Next the incision site was located in the lateral aspect of the hip, centered at the tip of the greater trochanter.. The skin and subcutaneous tissues were sharply incised. A portion of his prior incision was utilized, with the scar being excised. Incision was carefully dissected down to the fascia. This fascia was then incised in line with the incision. Next, a Charnley retractor was then placed in the abductors were identified. The anterior one third of the abductors was released off the trochanter and one large sleeve. The anterior hip capsule was then exposed. The capsule was then opened. The proximal femur was then visualized. The hip was then gently dislocated. The femoral head was then removed from the trunnion of the femoral component. The femoral stem was then inspected, and found to be well fixed. Attention was then turned to the acetabulum. The acetabulum was exposed, and the scar tissue was excised sharply with a knife. After the acetabulum was exposed, the polyethylene component was found to be grossly loose. This was then easily removed with a hemostat. The acetabular component was then inspected and found to be well fixed. There were 2 screws in the acetabulum which were removed. After adequate debridement of scar tissue, trial liner was then placed. Trial femoral head was then placed and hip was reduced. The leg lengths were checked and found to be equal. Hip was then taken through full range of motion, was stable throughout. Next, the hip was gently dislocated, and the trials were removed. Acetabulum was then reexposed. The appropriate acetabular liner was then opened, and using a saw the backside was roughened in order to adhere to the cement. Met was mixed and the acetabular liner was then cemented in place. He elevated rim was located in the anterior superior quadrant. The trunnion was then cleaned and dried and the femoral head was impacted on the trunnion. Hip was then reduced and any excess cement was removed. The hip was not moved until the cement had hardened. After the cemented hardened, the hip was then taken through range of motion and found to be stable throughout. Leg lengths were also checked, and found to be equal. The hip was then copiously irrigated with antibiotic solution with pulsatile lavage. The hip was then irrigated with Irrisept solution. The soft tissues were then injected with ropivacaine solution. A second dose of 1 g of Tranexamic acid was given. The abductors were then repaired with #5 Ethibond suture with drill holes to the bone. The fascia was closed with #2 strata fix suture. The subcutaneous tissue was closed with 3-0 Vicryl. The subcuticular tissue was closed with 30 strata fix suture. The skin was then closed with Dermabond tape. The patient was then transferred to the recovery room in stable condition. The Asst. LAURA Fox was required due to the complexity of surgery, and the need for skilled assembler surgical garment for positioning, draping, exposure, retraction, and closure of the wound.and closure of the wound.
[2016-10-12] MEDS: SODIUM CHLORIDE 0.9% 1,000 ML IV SCH ×2 (20:35→20:37)
[2016-10-12] MEDS: ceFAZolin 2 GM in SODIUM CHLORIDE 0.9% 100 ML IVPB SCH (20:37)
[2016-10-12] MEDS: ASPIRIN 325 MG TAB PO SCH (20:37)
[2016-10-12] MEDS ORDERED: SENNOSIDES-DOCUSATE SODIUM 1 EACH TAB PO SCH (21:00)
[2016-10-12] MEDS: HYDROcodone/APAP 5-325MG 1 EACH TAB PO PRN (23:33)
[2016-10-13] MEDS: ceFAZolin 2 GM in SODIUM CHLORIDE 0.9% 100 ML IVPB SCH (03:10)
[2016-10-13 07:22] LABS: Basophils % (A) 0 %; CH 29.5; CHCM 33.2; Eosinophils # (A) 0.1 k/uL (0-0.7); Eosinophils % (A) 1 %; HCT 40.4 % (39.0-53.0); HDW 2.38; HGB 12.9 gm/dL (13.0-17.5); Luc # (Auto) 0.21; Luc % (Auto) 1; Lymphocytes # (A) 1.4 k/uL (1.0-4.8); Lymphocytes % (A) 9 %; MCH 28.5 pg (25.0-35.0); MCHC 31.9 g/dL (31.0-37.0); MCV 89.4 fL (80.0-100.0); Mean Platelet Volume 8.3; Monocytes # (A) 0.8 k/uL (0-1.0); Monocytes % (A) 5 %; Neutrophils # (A) 12.7 k/uL (1.3-7.7); Neutrophils % (A) 84 %; RBC 4.51 m/uL (4.30-5.90); RDW 14.6 % (11.5-15.5); WBC 15.1 k/uL (3.8-10.6); WBC (Perox) 14.56
[2016-10-13] MEDS: ASPIRIN 325 MG TAB PO SCH (08:38)
[2016-10-13] MEDS: HYDROcodone/APAP 5-325MG 1 EACH TAB PO PRN (08:38)
[2016-10-13] MEDS ORDERED: MELOXICAM 7.5 MG TAB PO SCH (09:00)
--- NOTE | 2016-10-13 09:46 | P.DS ---
Providers Date of admission: 10/12/16 10:40 Expected date of discharge: 10/13/16 Attending physician: Campos Muñoz Consults: 10/12/16 15:08 Consult Physician Routine Consulting Provider: Suraj Redding Consult Reason/Comments: MEDICAL MANAGEMENT Do you want consulting provider notified?: Yes Primary care physician: Harris Arango - Discharge Diagnosis(es) (1) S/P total hip arthroplasty Current Visit: Yes Status: Acute Hospital Course: This is a 65-year-old male with known history of left total hip arthroplasty with failure of the polyethylene of the left total hip. The patient presents for evaluation. After discussion and consideration patient elects to proceed with left revision total hip arthroplasty. The patient is seen preoperatively by Dr. Muñoz and cleared for surgery. Patient is admitted to [facility] on 10/12/2016 for total hip arthroplasty. The procedures performed without complication or sequelae. The patient is doing well postoperatively. Labs and vital signs are stable on day of discharge. On day of discharge patient's hip incision is healing well. There is minimal erythema. There is mild drainage noted at this time. There is minimal soft tissue swelling to the hip and thigh. Patient has full foot and ankle motion without difficulty or pain. Neurovascular status to the left lower extremity is intact. Patient is discharged home in good condition. Please see med rec for accurate list of home medications. Plan - Discharge Summary New Discharge Prescriptions: New Aspirin 325 mg PO BID #60 tab HYDROcodone/APAP 5-325MG [[place] 5-325] 1 - 2 tab PO Q4-6H PRN #90 tab PRN Reason: Pain Sennosides-Docusate Sodium [Senokot-S] 1 tab PO BID #60 tablet No Action Atenolol [Tenormin] 25 mg PO DAILY Aspirin 81 mg PO DAILY Lisinopril [Zestril] 20 mg PO DAILY Isosorbide Mononitrate ER [Imdur] 60 mg PO DAILY Atorvastatin [Lipitor] 40 mg PO HS Nitroglycerin Sl Tabs [Nitrostat] 0.4 mg SUBLINGUAL Q5M PRN PRN Reason: Chest Pain Ibuprofen [Motrin] 800 mg PO Q8H PRN PRN Reason: Pain Ranitidine HCl [Zantac] 150 mg PO BID #30 tab Discharge Medication List Aspirin 81 mg PO DAILY 09/16/14 [History] Atenolol [Tenormin] 25 mg PO DAILY 09/16/14 [History] Atorvastatin [Lipitor] 40 mg PO HS 01/16/16 [History] Isosorbide Mononitrate ER [Imdur] 60 mg PO DAILY 01/16/16 [History] Lisinopril [Zestril] 20 mg PO DAILY 01/16/16 [History] Ibuprofen [Motrin] 800 mg PO Q8H PRN 08/31/16 [History] Nitroglycerin Sl Tabs [Nitrostat] 0.4 mg SUBLINGUAL Q5M PRN 08/31/16 [History] Ranitidine HCl [Zantac] 150 mg PO BID #30 tab 09/25/16 [Rx] Aspirin 325 mg PO BID #60 tab 10/13/16 [Rx] HYDROcodone/APAP 5-325MG [[place] 5-325] 1 - 2 tab PO Q4-6H PRN #90 tab 10/13/16 [ Rx] Sennosides-Docusate Sodium [Senokot-S] 1 tab PO BID #60 tablet 10/13/16 [Rx] Follow up Appointment(s)/Referral(s): Campos Muñoz DO [Doctor of Osteopathic Medicine] - 2 Weeks Activity/Diet/Wound Care/Special Instructions: Weightbearing as tolerated with walker May shower after 2 days if no drainage from the incision Continue use if abductor pillow for 6 weeks Follow-up with [facility] in 2 weeks with any questions or concerns Discharge Disposition: HOME WITH HOME HEALTH SERVICES
--- NOTE | 2016-10-13 14:30 | P.CONS ---
History of Present Illness - Reason for Consult Recommendations regarding antihypertensive, leukocytosis. - History of Present Illness 65-year-old pleasant gentleman was admitted for left hip arthroplasty elective. Medicine was consulted for leukocytosis. Patient does not have any fever, chills, nausea, vomiting, dysuria. His leukocytosis is reactive in nature and no further intervention is necessary. Patient did pass gas wanted to go home today. Patient is hypotensive does take 20 mg of lisinopril at home. Patient blood pressures are on the low normal side, which is expected post surgery. If his blood pressure remains fairly GERD at home he can resume his lisinopril, same thing was discussed with the patient. Patient does not have any other signs or symptoms of sepsis. Review of Systems REVIEW OF SYSTEMS: CONSTITUTIONAL: No fever, no malaise, no fatigue. HEENT: No recent visual problems or hearing problems. Denied any sore throat. CARDIOVASCULAR: No chest pain, orthopnea, PND, no palpitations, no syncope. PULMONARY: No shortness of breath, no cough, no hemoptysis. GASTROINTESTINAL: No diarrhea, no nausea, no vomiting, no abdominal pain. Normoactive bowel sounds. NEUROLOGICAL: No headaches, no weakness, no numbness. HEMATOLOGICAL: Denies any bleeding or petechiae. GENITOURINARY: Denies any burning micturition, frequency, or urgency. MUSCULOSKELETAL/RHEUMATOLOGICAL: Denies any joint pain, swelling, or any muscle pain. ENDOCRINE: Denies any polyuria or polydipsia. The rest of the 14-point review of systems is negative. Past Medical History Past Medical History: Coronary Artery Disease (CAD), Chest Pain / Angina, COPD, CVA/TIA, Hyperlipidemia, Hypertension, Osteoarthritis (OA) Additional Past Medical History / Comment(s): CVA-15 yrs ago-no residual, alcoholism-has not drank since 2003, arthritis bilateral hips-scheduled for 2nd total L hip in 2 weeks, diverticular disease, colon polyps-benign, chronic bronchitits. History of Any Multi-Drug Resistant Organisms: None Reported Past Surgical History: Appendectomy, Heart Catheterization, Heart Catheterization With Stent, Joint Replacement Additional Past Surgical History / Comment(s): jeffery hip replacements, deviated septum sx, colonoscopy/polypectomy, EGD Past Anesthesia/Blood Transfusion Reactions: No Reported Reaction Date of Last Stent Placement:: 2000 Past Psychological History: No Psychological Hx Reported Additional Psychological History / Comment(s): Pt resides with another adult. He uses a cane to ambulate. He drives. Smoking Status: Former smoker Past Alcohol Use History: None Reported Additional Past Alcohol Use History / Comment(s): Pt started smoking in 1967 and quit in 2012. He was a 1-2 PPD smoker. He is a recovered alcoholic. He last drank in 2003. Past Drug Use History: None Reported Additional Drug Use History / Comment(s): Pt used to smoke marijuana pretty much daily. He states he is quiting and last smoked 2 weeks ago. - Past Family History Mother Family Medical History: Cancer, Deep Vein Thrombosis (DVT) Additional Family Medical History / Comment(s): blood clot- not sure in legs or lungs Father Family Medical History: Cancer Additional Family Medical History / Comment(s): Father had colon cancer. He at the age of 60yrs. Medications and Allergies Home Medications Medication Instructions Recorded Confirmed Type Aspirin 81 mg PO DAILY 09/16/14 10/12/16 History Atenolol [Tenormin] 25 mg PO DAILY 09/16/14 10/12/16 History Atorvastatin [Lipitor] 40 mg PO HS 01/16/16 10/12/16 History Isosorbide Mononitrate ER [Imdur] 60 mg PO DAILY 01/16/16 10/12/16 History Lisinopril [Zestril] 20 mg PO DAILY 01/16/16 10/12/16 History Ibuprofen [Motrin] 800 mg PO Q8H PRN 08/31/16 10/12/16 History Nitroglycerin Sl Tabs [Nitrostat] 0.4 mg SUBLINGUAL Q5M PRN 08/31/16 10/12/16 History Allergies Allergy/AdvReac Type Severity Reaction Status Date / Time No Known Allergies Allergy Verified 10/06/16 10:44 Physical Exam Vitals: Vital Signs Temp Pulse Resp BP Pulse Ox 10/13/16 02:46 97.5 F L 67 16 113/58 96 10/12/16 20:34 97.1 F L 62 16 107/56 95 10/12/16 18:00 91 124/61 10/12/16 17:45 93 137/63 10/12/16 17:30 62 121/55 10/12/16 17:15 68 106/52 10/12/16 17:00 66 116/66 10/12/16 16:45 125/67 10/12/16 16:30 81 132/89 10/12/16 16:15 157/73 10/12/16 16:00 98.0 F 60 16 136/62 95 10/12/16 15:34 61 16 123/58 96 10/12/16 15:15 56 L 16 116/58 93 L 10/12/16 15:11 97.0 F L 62 16 131/63 96 Intake and Output 10/12/16 10/13/16 10/13/16 22:59 06:59 14:59 Intake Total 200 440 Output Total 150 400 300 Balance 50 -400 140 Intake: IV 200 Oral 440 Output: Urine 150 400 300 Other: Voiding Method Toilet Urinal # Voids 1 PHYSICAL EXAMINATION: GENERAL: The patient is alert and oriented x3, not in any acute distress. Well developed, well nourished. HEENT: Pupils are round and equally reacting to light. EOMI. No scleral icterus. No conjunctival pallor. Normocephalic, atraumatic. No pharyngeal erythema. No thyromegaly. CARDIOVASCULAR: S1 and S2 present. No murmurs, rubs, or gallops. PULMONARY: Chest is clear to auscultation, no wheezing or crackles. ABDOMEN: Soft, nontender, nondistended, normoactive bowel sounds. No palpable organomegaly. MUSCULOSKELETAL: Deferred to orthopedic surgery EXTREMITIES: No cyanosis, clubbing, or pedal edema. NEUROLOGICAL: Gross neurological examination did not reveal any focal deficits. SKIN: No rashes. Results CBC & Chem 7: 10/13/16 06:50 Labs: Abnormal Lab Results - Last 24 Hours (Table) 10/13/16 Range/Units 06:50 WBC 15.1 H (3.8-10.6) k/uL Hgb 12.9 L (13.0-17.5) gm/dL Neutrophils # 12.7 H (1.3-7.7) k/uL Assessment and Plan Plan: #1 leukocytosis: Without any signs or symptoms of infection reactive in nature no further intervention is necessary. #2 hypertension: Management as mentioned in the 12 history. #3 status post left hip arthroplasty: Pain management and DVT prophylaxis as per the primary service. #4 obesity: Counseling was provided. #5 history of CVA TIA in the past. #6 COPD without any acute exacerbation. #7 coronary artery disease. For above-mentioned chronic medical problems patient can continue his home medications.
[2016-10-13 14:59] VITALS: BP 118/82; PULSE 77; TEMP 97.2
== END 2016-10-13 16:12 | disposition home health service (06) | DRG 468 ==
LOC: 2ORMAIN 10:40 → 3SUR 15:13
PROVIDERS: ADMIT Orthopaedic Surgery; ATTEND Orthopaedic Surgery
PROC: 0SPB0JZ Removal of Synthetic Substitute from Left Hip Joint, Open Approach (ICD-10-PCS; principal; 2016-10-12 12:30)
PROC: 0SUE09Z Supplement Left Hip Joint, Acetabular Surface with Liner, Open Approach (ICD-10-PCS; principal; 2016-10-12 12:30)
PROC: 0SPB09Z Removal of Liner from Left Hip Joint, Open Approach (ICD-10-PCS; principal; 2016-10-12 12:30)
PROC: 0SRB029 Replacement of Left Hip Joint with Metal on Polyethylene Synthetic Substitute, Cemented, Open Approach (ICD-10-PCS; principal; 2016-10-12 12:30)
DX: T84.031A Mechanical loosening of internal left hip prosthetic joint, initial encounter (principal); I10 Essential (primary) hypertension; E78.5 Hyperlipidemia, unspecified; I25.10 Atherosclerotic heart disease of native coronary artery without angina pectoris; J44.9 Chronic obstructive pulmonary disease, unspecified; Y79.2 Prosthetic and other implants, materials and accessory orthopedic devices associated with adverse incidents; Z79.82 Long term (current) use of aspirin; Z79.899 Other long term (current) drug therapy; Z80.0 Family history of malignant neoplasm of digestive organs; Z86.73 Personal history of transient ischemic attack (TIA), and cerebral infarction without residual deficits; Z87.891 Personal history of nicotine dependence
CPT/HCPCS: 73501; 85025; 86850; 86891; 86900; 86901

== ENCOUNTER → 2017-01-20 | Outpatient (CLI) | payer MEDICARE ==
--- NOTE | 2017-01-20 09:47 | US ---
EXAMINATION TYPE: US abdomen complete DATE OF EXAM: 01/20/2017 COMPARISON: CT chest September 24, 2016 CLINICAL HISTORY: Z13.6 encounter for screening for cardiovascular di. Assess for AAA, former smoker for 45 years, no symptoms per patient, appendectomy EXAM MEASUREMENTS: Liver Length: 15.4 cm Gallbladder Wall: 0.2 cm CBD: 0.3 cm Spleen: 8.5 cm Right Kidney: 11.1 x 4.5 x 5.0 cm Left Kidney: 11.1 x 4.4 x 5.1 cm Pancreas: wnl Liver: wnl Gallbladder: wnl Evidence for sonographic Mccullough's sign: no CBD: wnl Spleen: wnl Right Kidney: wnl Left Kidney: wnl Upper IVC: wnl Abd Aorta: wnl The liver is homogenous. The intrahepatic portion of the IVC and visualized abdominal aorta are wit hin normal limits. There is some ectasia of the distal abdominal aorta measuring up to 2.4 cm. There is no evidence of cholelithiasis. Common bile duct is unremarkable. The visualized portions of the pancreas are homogenous. The spleen is unremarkable. Kidneys are symmetric and free of hydronephro sis. No renal lesions are seen. 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
== END | disposition home or self-care (01) ==
LOC: RADUSWWP 08:16
PROVIDERS: ATTEND Family Medicine
DX: I77.811 Abdominal aortic ectasia (principal)
CPT/HCPCS: 76700

== ENCOUNTER → 2017-03-13 | Outpatient (CLI) | payer MEDICARE ==
--- NOTE | 2017-03-13 21:22 | PE ---
EXAMINATION TYPE: PET CT fusion skull to thigh DATE OF EXAM: 03/13/2017 COMPARISON: CT chest February 11, 2017 and older study September 24, 2016 HISTORY: Solitary pulmonary nodule, abnormal CT. TECHNIQUE: Following the intravenous administration of 15.14 mCi of F-18 FDG, whole body images are performed from the skull base to the midthigh. Images are reviewed on the computer in the coronal, a xial, and sagittal planes. Reconstructed rotating images are created on independent workstation and reviewed on the computer. A localization noncontrast CT is performed in conjunction with the PET sc an. SCAN: Initial Scan FINDINGS: SKULL BASE AND NECK: No suspicious hypermetabolic uptake in neck is identified to suggest neck adeno vicki. CHEST, MEDIASTINUM, AND HILAR REGION: There is persistent background mild to moderate emphysematous c hange. There is persistent spiculated right midlung nodule measuring 1.6 x 1.2 cm axial image 86, hyp ermetabolic uptake is present, max SUV is 4.34. There are no additional areas of suspicious hypermetabolic uptake in the thorax. No suspicious lymph nodes are identified. ABDOMEN AND PELVIS: No suspicious hypermetabolic uptake in the abdomen or pelvis is seen. No worrisom e adrenal masses are present. Normal excretion is seen. OSSEOUS STRUCTURES: No suspicious hypermetabolic uptake is noted. There is slightly more prominent hy permetabolic uptake surrounding left hip prosthesis versus right. Clinical correlation for infection advised. OTHER CT: There is fairly moderate calcified plaque at both carotid bulbs. Consider correlating with nonemergent carotid ultrasound. There is cardiomegaly with fairly severe 3 vessel coronary artery calcification and/or coronary stent s. Correlate clinically. Small degree of bilateral gynecomastia is present. There is moderate atherosclerotic change of the abdominal aorta which is ectatic, and measures up to 3.2 cm AP diameter on axial image 162 and up to 3.1 cm in transverse diameter axial image 185. There is metallic artifact bilateral hip arthroplasties is causes streak artifact limiting evaluation of pelvic structures. Bladder And prostate are poorly visualized. There is multilevel spurring in the spine. There is multilevel facet arthropathy in the mid to lower lumbar spine. Nonspecific sclerotic focus left mid lumbar vertebra axial image 183 is noted. Addition al larger sclerotic focus left L1 level axial image 158 is noted. No suspicious hypermetabolic uptake is seen to suggest osseous metastatic disease. IMPRESSION: Persistent spiculated 1.6 x 1.2 cm right upper lung nodule worrisome for neoplasm. No jermaine picious adenopathy or metastatic disease noted. Abdominal aortic aneurysm measuring up to 3.2 cm note d. Attention left hip prosthesis as noted above. TNM STAGING T1a,N0,M0 AJCC STAGING Stage I
== END | disposition home or self-care (01) ==
LOC: RADPETMAIN 09:50
PROVIDERS: ATTEND Internal Medicine Critical Care Medicine
DX: R91.1 Solitary pulmonary nodule (principal); I71.4 Abdominal aortic aneurysm, without rupture; Z96.642 Presence of left artificial hip joint
CPT/HCPCS: 78815; A9552

== ENCOUNTER → 2017-04-05 | Outpatient (CLI) | payer MEDICARE ==
[2017-04-05 09:40] LABS: Basophils # (A) 0.1 k/uL (0-0.2); Basophils % (A) 1 %; Eosinophils # (A) 0.3 k/uL (0-0.7); Eosinophils % (A) 5 %; HCT 45.5 % (39.0-53.0); HGB 14.9 gm/dL (13.0-17.5); Lymphocytes # (A) 1.9 k/uL (1.0-4.8); Lymphocytes % (A) 27 %; MCH 28.9 pg (25.0-35.0); MCHC 32.8 g/dL (31.0-37.0); MCV 88.3 fL (80.0-100.0); Mean Platelet Volume 7.5; Monocytes # (A) 0.5 k/uL (0-1.0); Monocytes % (A) 8 %; Neutrophils % (A) 56 %; Platelet Count 250 k/uL (150-450); RBC 5.15 m/uL (4.30-5.90); WBC 7.1 k/uL (3.8-10.6)
[2017-04-05 09:52] LABS: Appearance,Urine Clear (Clear); Bilirubin,Urine Negative (Negative); Blood,Urine Negative (Negative); Color,Urine Light Yellow; Glucose,Urine (UA) Negative (Negative); Ketones,Urine Negative (Negative); Leukocyte Esterase,Urine Negative (Negative); Nitrite,Urine Negative (Negative); Protein,Urine Negative (Negative); Specific Gravity,Urine 1.007 (1.001-1.035); Urobilinogen,Urine <2.0 mg/dL (<2.0)
[2017-04-05 09:56] LABS: Anion Gap 9 mmol/L; Blood Urea Nitrogen 23 mg/dL (9-20); Carbon Dioxide 27 mmol/L (22-30); Chloride 105 mmol/L (98-107); Potassium 4.8 mmol/L (3.5-5.1); Sodium 141 mmol/L (137-145)
== END | disposition home or self-care (01) ==
LOC: LABPAT 09:12
PROVIDERS: ATTEND Thoracic Surgery (Cardiothoracic Vascular Surgery)
DX: Z01.812 Encounter for preprocedural laboratory examination (principal); R91.1 Solitary pulmonary nodule
CPT/HCPCS: 36415; 80051; 81003; 82565; 84520; 85025; 86850; 86900; 86901

== ENCOUNTER 2017-04-20 23:09 | Emergency (ER) | payer MEDICARE ==
--- NOTE | 2017-04-20 23:35 | ED ---
Recheck HPI <Paulo Sales - Last Filed: 04/21/17 00:21> - General Source: patient, family, EMS, RN notes reviewed Mode of arrival: EMS Limitations: physical limitation <Isa Durand - Last Filed: 04/21/17 00:39> - General Chief Complaint: Recheck/Abnormal Lab/Rx Stated Complaint: bleeding from incision Time Seen by Provider: 04/20/17 23:24 - History of Present Illness Initial Comments: This is a 66-year-old male who presents to the emergency department with chief complaint of leakage from incision site. Patient states that he had a right lobectomy performed last by Dr. Kumari for a "spot on my lung." He was discharged home yesterday after having a chest tube removed. Patient states that he removed his dressings and showered as was instructed. He states that today he had some leakage of a bloody substance from incision site on his right chest. He states that it soaked a T-shirt and a towel. Patient states that he does have some shortness of breath but that this has not worsened since having the surgery. Denies fever, chills, chest pain, abdominal pain, nausea or vomiting, constipation or diarrhea, dysuria or hematuria, numbness or tingling, headache or vision changes. (Isa Durand) - Related Data Home Medications Medication Instructions Recorded Confirmed Aspirin 81 mg PO DAILY 09/16/14 04/20/17 Atenolol [Tenormin] 25 mg PO BID 09/16/14 04/20/17 Atorvastatin [Lipitor] 40 mg PO HS 01/16/16 04/20/17 Isosorbide Mononitrate ER [Imdur] 60 mg PO QAM 01/16/16 04/20/17 Lisinopril [Zestril] 20 mg PO QAM 01/16/16 04/20/17 Nitroglycerin Sl Tabs [Nitrostat] 0.4 mg SUBLINGUAL Q5M PRN 08/31/16 04/20/17 Previous Rx's Medication Instructions Recorded Sennosides-Docusate Sodium 2 tab PO HS #14 tablet 04/19/17 [Senokot-S] traMADol HCl [Ultram] 50 mg PO QID #30 tab 04/19/17 Azithromycin [Zithromax Z-pack] 0 mg PO DIRECTED #6 tab 04/21/17 Allergies Allergy/AdvReac Type Severity Reaction Status Date / Time No Known Allergies Allergy Verified 04/20/17 23:26 Review of Systems ROS Other: All systems not noted in ROS Statement are negative. <Paulo Sales - Last Filed: 04/21/17 00:21> ROS Other: All systems not noted in ROS Statement are negative. <Isa Durand - Last Filed: 04/21/17 00:39> ROS Statement: Those systems with pertinent positive or pertinent negative responses have been documented in the HPI. Past Medical History Past Medical History: Coronary Artery Disease (CAD), Chest Pain / Angina, COPD, CVA/TIA, Hyperlipidemia, Hypertension, Osteoarthritis (OA) Additional Past Medical History / Comment(s): CVA-15 yrs ago-no residual, alcoholism-has not drank since 2003, arthritis bilateral hips-scheduled for 2nd total L hip in 2 weeks, diverticular disease, colon polyps-benign, chronic bronchitits. History of Any Multi-Drug Resistant Organisms: None Reported Past Surgical History: Appendectomy, Heart Catheterization, Heart Catheterization With Stent, Joint Replacement Additional Past Surgical History / Comment(s): jeffery hip replacements, deviated septum sx, colonoscopy/polypectomy, EGD, lobectomy Past Anesthesia/Blood Transfusion Reactions: No Reported Reaction Additional Past Anesthesia/Blood Transfusion Reaction / Comment(s): no hx blood transfusion Date of Last Stent Placement:: 2000 Past Psychological History: No Psychological Hx Reported Smoking Status: Never smoker Past Alcohol Use History: None Reported Past Drug Use History: Marijuana - Past Family History Mother Family Medical History: Cancer, Deep Vein Thrombosis (DVT) Additional Family Medical History / Comment(s): blood clot- not sure in legs or lungs Father Family Medical History: Cancer Additional Family Medical History / Comment(s): Father had colon cancer. He at the age of 60yrs. <Isa Durand - Last Filed: 04/21/17 00:39> General Exam <Paulo Sales - Last Filed: 04/21/17 00:21> Limitations: physical limitation <Isa Durand - Last Filed: 04/21/17 00:39> - General Exam Comments Initial Comments: General: Awake and alert, well-developed; in no apparent distress. HEENT: Head atraumatic, normocephalic. Pupils are equal, round and reactive to light. Extraocular movements intact. Oropharynx moist without erythema or exudate. Neck: Supple. Normal ROM. Cardiovascular: Regular rate and rhythm. No murmurs, rubs or gallops. Chest symmetrical. Respiratory: Normal respiratory effort with no use of accessory muscles. Crackles noted in right lung base. Incision site right lateral chest wall is open. Minimal drainage at this time. No evidence of infection. Musculoskeletal: Normal ROM, no tenderness bilateral upper and lower extremities. Skin: [place], warm and dry without rashes or lesions. Neurological: Alert and oriented x3. CN II-XII grossly intact. Speech is fluent and answers are appropriate. No focal neuro deficits. Psychiatric: Normal mood and affect. No overt signs of depression or anxiety noted. (Isa Durand) Course <Paulo Sales - Last Filed: 04/21/17 00:21> <Isa Durand - Last Filed: 04/21/17 00:39> Vital Signs 04/20/17 23:18 Temperature 99.7 F H Pulse Rate 86 Respiratory 17 Rate Blood Pressure 158/69 O2 Sat by Pulse 97 Oximetry - Reevaluation(s) Reevaluation #1: 04/21/17 00:21 Case was discussed with Dr. Kumari who does not have further concern for this patient at this time. Patient will be treated with antibiotics for possible early left-sided pneumonia and advised close follow-up with Dr. Kumari. (Paulo Sales) Medical Decision Making <Paulo Sales - Last Filed: 04/21/17 00:21> - Radiology Data Radiology results: report reviewed <Isa Durand - Last Filed: 04/21/17 00:39> - Medical Decision Making This is a 66-year-old male who presented for evaluation of leakage from incision site. Patient recently underwent a right lung lobectomy performed by Dr. Kumari. Patient did have some serous fluid drainage from chest tube site on right lateral chest wall. X-ray revealed no increase in pleural effusion but did indicate a possible left lung infiltrate. Dr. Sales, attending physician was in contact with Dr. Kumari who performed the surgery. Recommended discharge home with oral antibiotics. Patient is in no acute distress and will be discharged home. He is to follow-up with his primary care provider in the next 1-2 days. Patient was made aware of findings. He is in agreement with plan and voices understanding. All questions were answered. (Isa Durand) - Radiology Data Chest x-ray impression: There is probably a minimal left lower lobe medial infiltrate that is the same or increased compared to yesterday. No heart failure. Trachea is deviated slightly to the right side and there is probably some degree of atelectasis in the medial right upper lobe. This appears stable. As read by Dr. Pruitt. (Isa Durand) Disposition <Paulo Sales - Last Filed: 04/21/17 00:21> Time of Disposition: 00:38 <Isa Durand - Last Filed: 04/21/17 00:39> Clinical Impression: Pneumonia Disposition: HOME SELF-CARE Condition: Good Instructions: Community Acquired Pneumonia (ED) Additional Instructions: Please take medications as prescribed. Please follow up with primary care provider within 1-2 days. Return to emergency department if symptoms should worsen or any concerns arise. Prescriptions: Azithromycin [Zithromax Z-pack] 0 mg PO DIRECTED #6 tab Referrals: Harris Arango III, MD [Primary Care Provider] - 1-2 days
--- NOTE | 2017-04-20 23:46 | XR ---
EXAMINATION TYPE: XR chest 2V DATE OF EXAM: 04/20/2017 COMPARISON: Yesterday HISTORY: Pleural effusion. Right lung mass TECHNIQUE: Frontal and lateral views of the chest are obtained. FINDINGS: There is no heart failure. There is a small infiltrate at the medial posterior left lung b ase on the frontal view. There is no evidence of pleural effusion. Bony thorax is intact. IMPRESSION: There is probably a minimal left lower lobe medial infiltrate that is the same or increa sed compared to yesterday. No heart failure. Trachea is deviated slightly to the right side and there is probably some degree of atelectasis in the medial right upper lobe. This appears stable.
[2017-04-21 01:10] VITALS: BP 149/64; PULSE 76; RESP 18; TEMP 98.3
== END 2017-04-21 01:09 | disposition home or self-care (01) ==
LOC: EC 23:09
DX: J18.9 Pneumonia, unspecified organism (principal); I25.119 Atherosclerotic heart disease of native coronary artery with unspecified angina pectoris; E78.5 Hyperlipidemia, unspecified; I10 Essential (primary) hypertension; Z86.73 Personal history of transient ischemic attack (TIA), and cerebral infarction without residual deficits; Z79.82 Long term (current) use of aspirin; Z79.899 Other long term (current) drug therapy
CPT/HCPCS: 71046; 99284

== ENCOUNTER → 2017-09-14 | Outpatient (CLI) | payer MEDICARE ==
[2017-09-14 11:19] LABS: ALT 74 U/L (21-72); AST 45 U/L (17-59); Albumin 4.1 g/dL (3.5-5.0); Alkaline Phosphatase 103 U/L (38-126); Anion Gap 13 mmol/L; Blood Urea Nitrogen 19 mg/dL (9-20); Calcium 9.6 mg/dL (8.4-10.2); Carbon Dioxide 25 mmol/L (22-30); Chloride 104 mmol/L (98-107); Cholesterol 143 mg/dL (<200); Glucose 97 mg/dL (74-99); HDL Cholesterol 43 mg/dL (40-60); LDL Cholesterol,Calculated 82 mg/dL (0-99); Potassium 4.7 mmol/L (3.5-5.1); Sodium 142 mmol/L (137-145); Total Bilirubin 0.5 mg/dL (0.2-1.3); Total Protein 6.7 g/dL (6.3-8.2); Triglycerides 91 mg/dL (<150)
== END | disposition home or self-care (01) ==
LOC: LABWHC1 10:20
PROVIDERS: ATTEND Internal Medicine Interventional Cardiology
DX: E78.2 Mixed hyperlipidemia (principal)
CPT/HCPCS: 36415; 80053; 80061

== ENCOUNTER → 2017-10-25 | Outpatient (CLI) | payer MEDICARE ==
[2017-10-25 10:07] LABS: Blood Urea Nitrogen 18 mg/dL (9-20)
--- NOTE | 2017-10-25 18:01 | CT ---
EXAMINATION TYPE: CT chest w con DATE OF EXAM: 10/25/2017 COMPARISON: 02/11/2017 HISTORY: Follow up for lung CA. CT DLP: 399.8 mGycm, Automated exposure control for dose reduction was used. CONTRAST: Performed injected with 100 mL of Isovue 300. TECHNIQUE: Axial images were obtained at 5 mm thick sections. Reconstructed images are reviewed on [employer] computer in the coronal plane. FINDINGS: Portion of the thyroid visualized is normal. There is a small 0.4 cm nodule within the right middle lobe. An adjacent level has an additional smal l 0.4 cm nodule. Series 4 image 30-33. These may be new. Some areas of pneumonitis are present. The periphery of the right lower lobe and in the posterior med ial left lung base. Previous right midlung mass is not identified. No enlarged mediastinal or hilar adenopathy is evident. The ascending aorta diameter at the level o f the main pulmonary artery is 3.9 cm. The main pulmonary artery diameter at the bifurcation is 2.9 cm. Coronary artery calcifications present. Limited CT sections are obtained through the upper abdomen. Abdomen is essentially unremarkable. IMPRESSIONS: 1. Previous right midlung mass is not identified. 2. Couple small nodules may have developed in the right middle lobe. Short-term follow-up is recommen ded.
== END | disposition home or self-care (01) ==
LOC: RADCTMAIN 09:34
PROVIDERS: ATTEND Internal Medicine Critical Care Medicine
DX: R91.8 Other nonspecific abnormal finding of lung field (principal)
CPT/HCPCS: 82565; 84520; 71260; 36415; Q9967

== ENCOUNTER → 2018-01-06 | Outpatient (CLI) | payer MEDICARE ==
--- NOTE | 2018-01-06 11:09 | MR ---
EXAMINATION TYPE: MR shoulder RT wo con DATE OF EXAM: 01/06/2018 COMPARISON: None HISTORY: Pain TECHNIQUE: Multiplanar, multisequence imaging of the right shoulder is performed without contrast. FINDINGS: Rotator Cuff: Subscapularis tendon: There is diffuse increased signal involving the distal 1.2 cm of the tendon to the level of the insertion compatible with diffuse tendinosis and partial tear. Anterior fibers are m ost involved. 3 mm through thickness tear at the insertion suspected with no retraction. Subscapularis tendon: Intact Infraspinatus tendon: Intact. Acromioclavicular Joint: Hypertrophic change of the AC joint is noted. There does appear to be mass e ffect upon the supraspinatus tendon and muscle. Correlate for impingement. Glenohumeral Joint: Joint space appears to be preserved. No sizable joint effusion. There is poor def inition of the inferior glenohumeral ligament particularly along the humeral attachment correlate for ligamentous injury. Labrum: Superior labrum appears grossly intact by non arthrogram study. Truncation of the inferior la radha is noted. This can be associated with a tear. Biceps Tendon: The long head of biceps is in normal location within bicipital groove. There is increa sed fluid surrounding the biceps tendon compatible with tendinosis Bone marrow signal: Cystic changes involving the humeral head has a benign appearance may be reactive or related to chronic impingement. Other: There is a mild degree of atrophy involving the supraspinatus and infraspinatus muscles. IMPRESSION: 1. Diffuse tendinopathy distal 1.2 cm of the supraspinatus tendon to the level of insertion compatibl e with tendinosis and partial intrasubstance tear. As noted above the anterior fibers are most involv ed with a 3 mm through thickness tear at the insertion suggested. No evidence of retraction. 2. AC joint arthropathy resulting in impingement. 3. There is poor definition of the inferior glenohumeral ligament suspicious for ligamentous strain a nd probable tear. Particular attention to the humeral attachment. 4. Bicipital tendinosis.
== END ==
LOC: RADMRIMAIN 08:39
PROVIDERS: ATTEND Orthopaedic Surgery
DX: M75.91 Shoulder lesion, unspecified, right shoulder (principal); M19.011 Primary osteoarthritis, right shoulder; M75.21 Bicipital tendinitis, right shoulder

== ENCOUNTER → 2018-02-07 | Outpatient (CLI) | payer MEDICARE ==
[2018-02-07 11:16] LABS: Blood Urea Nitrogen 20 mg/dL (9-20)
--- NOTE | 2018-02-07 12:07 | CT ---
EXAMINATION TYPE: CT chest w con DATE OF EXAM: 02/07/2018 COMPARISON: 10/25/2017 HISTORY: Solitary pulmonary nodule CT DLP: 423.7 mGycm Automated exposure control for dose reduction was used. CONTRAST: CT scan of the chest is performed with IV Contrast, patient injected with 100 ml mL of Isovue 300. FINDINGS: LUNGS: There is been interval development of a small to moderate-sized right pleural effusion with dos santos bsegmental consolidation likely in the basis of compressive atelectasis. Small blebs are noted. Corre late for COPD. Stable right middle lobe pulmonary nodule. MEDIASTINUM: Atherosclerotic change of the aorta. Coronary artery calcification. No pathologic adenop athy. The ascending aorta diameter at the level of the main pulmonary artery is 3.9 cm. The main pulm onary artery diameter at the bifurcation is 2.9 cm. Coronary artery calcifications present. OTHER: Hypertrophic and degenerative change of the spine. Sclerotic density involving upper lumbar s egment is nonspecific but stable chronic appearing rib deformities may been the basis of previous tra kings. IMPRESSION: 1. Interval development of a small the moderate right sized pleural effusion. Tiny 4 mm pulmonary nod ules in the right middle lobe are stable.
== END ==
LOC: RADCTMAIN 10:30
PROVIDERS: ATTEND Internal Medicine Critical Care Medicine
DX: J90 Pleural effusion, not elsewhere classified (principal)
CPT/HCPCS: 82565; 84520; 71260; 36415; Q9967

== ENCOUNTER → 2018-10-08 | Outpatient (CLI) | payer MEDICARE ==
[2018-10-08 17:00] LABS: LDL Cholesterol,Calculated 80.2 mg/dL (0.0-131.0); VLDL Calculation 16.8 mg/dL (5.00-40.00)
== END | disposition home or self-care (01) ==
LOC: LABWHC1 08:17
PROVIDERS: ATTEND Nurse Practitioner Adult Health
DX: E78.2 Mixed hyperlipidemia (principal)
CPT/HCPCS: 36415; 80061; 84450; 84460

== ENCOUNTER → 2019-03-31 | Outpatient (CLI) | payer MEDICARE ==
[2019-03-31 18:41] LABS: African American GFR (CKD) 89.9 (60.0-200.0); Albumin 4.4 g/dL (3.80-4.90); Albumin/Globulin Ratio 2.32 (1.60-3.17); Anion Gap 7.6 mmol/L (4.00-12.00); Calcium 9.4 mg/dL (8.7-10.3); Carbon Dioxide 27.4 mmol/L (21.6-31.8); Chol/HDL Ratio 3.73; Globulin 1.9 g/dL (1.6-3.3); LDL Cholesterol,Calculated 84.8 mg/dL (0.0-131.0); Non-African American GFR(CKD) 77.5 (60.0-200.0); Potassium 5.1 mmol/L (3.5-5.5); Total Bilirubin 0.3 mg/dL (0.2-1.2); Total Protein 6.3 g/dL (6.2-8.2); VLDL Calculation 24.2 mg/dL (5.00-40.00)
== END ==
LOC: LABWHC1 08:25
PROVIDERS: ATTEND Internal Medicine Interventional Cardiology
DX: E78.2 Mixed hyperlipidemia (principal)
CPT/HCPCS: 36415; 80053; 80061

== ENCOUNTER → 2019-08-15 | Outpatient (CLI) | payer MEDICARE ==
[2019-08-15 13:38] LABS: African American GFR (CKD) >90 (>60 ml/min/1.73 sqM); Blood Urea Nitrogen 16 mg/dL (9-20); Non-African American GFR(CKD) >90 (>60 ml/min/1.73 sqM)
--- NOTE | 2019-08-15 14:53 | CT ---
EXAMINATION TYPE: CT chest w con DATE OF EXAM: 08/15/2019 COMPARISON: 02/07/2018 HISTORY: Non small cell carcinoma CT DLP: 678 mGycm Automated exposure control for dose reduction was used. CONTRAST: CT scan of the chest is performed with IV Contrast, patient injected with 100 ml mL of Isovue 300. FINDINGS: LUNGS: Right-sided pleural-based thickening and tiny effusion with subsegmental consolidation noted. 4 mm right middle lobe pulmonary nodule stable. Findings of COPD noted. No new nodules. Basilar bronc hiectasis incidentally noted. No pneumothorax. Volume loss on the right noted. MEDIASTINUM: There are no greater than 1 cm hilar or mediastinal lymph nodes. Atherosclerotic change of the aorta. Coronary artery calcifications noted. The heart is enlarged. OTHER: Hypertrophic and degenerative change of the spine. IMPRESSION: 1. Chronic pleural-based thickening and areas of consolidation improved compared to the prior exam. 2. Stable 4 mm right middle lobe pulmonary nodule.
== END | disposition home or self-care (01) ==
LOC: RADCTMAIN 12:55
PROVIDERS: ATTEND Internal Medicine Critical Care Medicine
DX: R91.1 Solitary pulmonary nodule (principal); J92.9 Pleural plaque without asbestos; C34.90 Malignant neoplasm of unspecified part of unspecified bronchus or lung
CPT/HCPCS: 82565; 84520; 71260; 36415; Q9967

== ENCOUNTER → 2019-09-25 | Outpatient (CLI) | payer MEDICARE | END | disposition home or self-care (01) | LOC: LABWHC1 09:16 | PROVIDERS: ATTEND Nurse Practitioner Adult Health | DX: E78.2 Mixed hyperlipidemia (principal) | CPT/HCPCS: 36415; 80061 ==

== ENCOUNTER → 2020-01-04 | Outpatient (CLI) | payer MEDICARE ==
[2020-01-04 14:50] LABS: African American GFR (CKD) 89.2 (60.0-200.0); Albumin 4.3 g/dL (3.80-4.90); Albumin/Globulin Ratio 1.95 (1.60-3.17); Anion Gap 6.3 mmol/L (4.00-12.00); Calcium 9.4 mg/dL (8.7-10.3); Carbon Dioxide 27.7 mmol/L (21.6-31.8); Chol/HDL Ratio 3.83; Globulin 2.2 g/dL (1.6-3.3); LDL Cholesterol,Calculated 95.6 mg/dL (0.0-131.0); Potassium 4.9 mmol/L (3.5-5.5); Total Bilirubin 0.4 mg/dL (0.3-1.2); Total Protein 6.5 g/dL (6.2-8.2); VLDL Calculation 17.4 mg/dL (5.00-40.00)
== END | disposition home or self-care (01) ==
LOC: LABWHC1 09:37
PROVIDERS: ATTEND Internal Medicine Interventional Cardiology
DX: E78.2 Mixed hyperlipidemia (principal)
CPT/HCPCS: 36415; 80053; 80061

== ENCOUNTER → 2020-01-12 | Outpatient (CLI) | payer MEDICARE ==
[2020-01-12 11:13] LABS: HCT 47.5 % (39.0-53.0); HGB 15.2 gm/dL (13.0-17.5); MCHC 32.1 g/dL (31.0-37.0); MCV 90.3 fL (80.0-100.0); Platelet Count 262 k/uL (150-450); RBC 5.26 m/uL (4.30-5.90); RDW 14.3 % (11.5-15.5); WBC 7.7 k/uL (3.8-10.6)
[2020-01-12 11:22] LABS: African American GFR (CKD) >90 (>60 ml/min/1.73 sqM); Anion Gap 5 mmol/L; Blood Urea Nitrogen 18 mg/dL (9-20); Carbon Dioxide 28 mmol/L (22-30); Chloride 106 mmol/L (98-107); Non-African American GFR(CKD) 90 (>60 ml/min/1.73 sqM); Potassium 4.9 mmol/L (3.5-5.1); Sodium 139 mmol/L (137-145)
== END | disposition home or self-care (01) ==
LOC: LABPAT 09:04
PROVIDERS: ATTEND Internal Medicine Interventional Cardiology
DX: Z01.818 Encounter for other preprocedural examination (principal); I25.10 Atherosclerotic heart disease of native coronary artery without angina pectoris
CPT/HCPCS: 36415; 80051; 82565; 84520; 85027

== ENCOUNTER 2020-01-19 06:05 | Day surgery (SDC) | payer MEDICARE ==
[2020-01-17 13:43] VITALS: BMI 27.3
[~2020-01-19 06:05] MED LIST changes: -ACETAMINOPHEN TAB 500 MG TAB PO ONE; +ALPRAZolam 0.25 MG TAB PO PRN; +ALPRAZolam 0.5 MG TAB PO PRN; -DEXAMETHASONE SOD PHOSPHATE 10 MG/ML 1 ML VIAL IV ONE; -HYDROmorphone 1 MG/ML 1 ML SYRINGE IVP PRN; -MELOXICAM 7.5 MG TAB PO ONE; -MIDAZOLAM 2 MG/2 ML VIAL IV PRN; +NITROGLYCERIN SL TABS 0.4 MG TAB SUBLINGUAL PRN; -ONDANSETRON 4 MG/2 ML VIAL IVP ONE; -SCOPOLAMINE 1.5MG/72HR PATCH TRANSDERM ONE; +SODIUM CHLORIDE 0.9% 1,000 ML in EMPTY BAG 1 BAG IV ONE; -TRANEXAMIC ACID 1,000 MG in SODIUM CHLORIDE 0.9% 100 ML IVPB ONE; -ceFAZolin 2 GM in SODIUM CHLORIDE 0.9% 100 ML IVPB ONE
[2020-01-19 06:52] VITALS: RESP 16; TEMP 98.1
[2020-01-19] MEDS ORDERED: SODIUM CHLORIDE 0.9% 1,000 ML IV ONE (06:52)
[2020-01-19] MEDS ORDERED: ASPIRIN 325 MG TAB PO ONE (07:00)
[2020-01-19] MEDS ORDERED: LIDOCAINE 1% INJ 10MG/ML (20 ML MDV) ONE (07:22)
[2020-01-19] MEDS ORDERED: VERAPAMIL 2.5 MG/ML 2 ML AMP ONE (07:22)
[2020-01-19] MEDS ORDERED: fentaNYL (PF) 50 MCG/ML 2 ML AMP ONE (07:22)
[2020-01-19] MEDS ORDERED: HEPARIN SODIUM 1,000 UN/ML (10ML VL) ONE (07:22)
[2020-01-19] MEDS ORDERED: fentaNYL (PF) 50 MCG/ML 2 ML AMP IVP ONE (07:40)
[2020-01-19] MEDS ORDERED: LIDOCAINE 1% INJ 10MG/ML (20 ML MDV) SQ ONE (07:41)
[2020-01-19] MEDS ORDERED: VERAPAMIL SYRINGE (5 MG/10 ML) INTRAARTER ONE (07:42)
[2020-01-19] MEDS ORDERED: HEPARIN SODIUM 1,000 UN/ML (10ML VL) IV ONE (07:47)
[2020-01-19] MEDS ORDERED: IOPAMIDOL-370 125ML BTL INJ ONE (07:55)
[2020-01-19] MEDS ORDERED: RX INFO: IV CONTRAST WAS GIVEN 1 EACH MISC MISCELLANE PRN (08:10)
[2020-01-19] MEDS ORDERED: SODIUM CHLORIDE 0.9% 1,000 ML IV SCH (08:15)
[2020-01-19] MEDS ORDERED: ISOSORBIDE MONONITRATE ER 60 MG TAB.ER.24H PO SCH (09:00)
[2020-01-19] MEDS ORDERED: ASPIRIN 81 MG PO SCH (09:00)
[2020-01-19] MEDS ORDERED: lisinopriL 20 MG TAB PO SCH (09:00)
[2020-01-19] MEDS ORDERED: METOPROLOL TARTRATE 25 MG TAB PO SCH (09:00)
[2020-01-19] MEDS ORDERED: EZETIMIBE 10 MG TAB PO SCH (09:00)
--- NOTE | 2020-01-19 09:16 | CC ---
CARDIAC CATHETERIZATION REPORT PROCEDURE PERFORMED: Cardiac catheterization. HISTORY: Mr. Rush is a 69-year-old male with known history of coronary artery disease, status post stenting of the RCA, history of hypertension, hyperlipidemia and a prior history of smoking, who has been complaining of some episodes of chest discomfort, exertional , and he had a stress test that showed a small area of stress-induced ischemia. In view of that, recommendation made regarding cardiac catheterization. The procedures, risks, and complication were discussed with the patient who is in full understanding and agreement. PROCEDURE: Patient was brought to cardiac cath lab manager in a fasting semi-sedated state after receiving fentanyl and Benadryl and achieving moderate conscious sedated state. Using Xylocaine anesthesia and Seldinger technique, a 6-Tunisian sheath was introduced in the right radial artery. Selective right and left coronary angiography performed using 5-Tunisian 3.5 bent, right and left Dominique catheters. Multiple views of the coronary arteries including hemiaxial views were obtained. Following that, a 5-Tunisian tight pigtail catheter was introduced into the left ventricle and a 30-degree [place] view of the left ventricle was obtained. Following that, catheter and sheath were removed. Hemostasis was obtained and deployment of TR band. There was no immediate complication. Patient was returned to his room in stable condition. Of note, the patient received 4500 units of intravenous heparin as well as intra-arterial verapamil. FINDINGS: FLUOROSCOPY: There was severe calcification involving the left anterior descending artery, as well as the right coronary artery and the mitral anulus. LEFT MAIN: This is a large-sized vessel, bifurcating into left circumflex, left anterior descending artery. Left main coronary artery has no evidence of high-grade stenosis. LEFT ANTERIOR DESCENDING ARTERY: This is a large-sized vessel, tapers down distal third, giving rise to a small diagonal branch. Left anterior descending artery has mild intimal disease in mid segment of 10% to 20% without any evidence of high-grade stenosis. LEFT CIRCUMFLEX: This is a large nondominant vessel giving rise to 4 obtuse marginal branchs. The left circumflex as well as branches have no evidence of obstructive coronary artery disease. RIGHT CORONARY ARTERY: This is a dominant vessel bifurcating distally in the PDA and posterolateral segment branches. The PDA reaches toward the inferoapical wall. The stented segment in the proximal right coronary artery is patent. There is minimal plaque distal to the stent of about 10-20 percent. The rest of the vessel has no high- grade stenosis. LEFT VENTRICULOGRAM: Left ventriculogram was performed in 30-degree [place] view and revealed normal left ventricular size and systolic function ejection fraction 60%. There was no significant mitral regurgitation. HEMODYNAMICS: There was no gradient across the aortic valve. The left ventricular end-diastolic pressure was 16-20 mmHg. CONCLUSION: 1. Calcified coronary arteries. 2. Patent stent to the right coronary artery. 3. Mild obstructive disease involving the left anterior descending and the right coronary artery. 4. Normal left ventricular systolic size and systolic function. RECOMMENDATION: In view of finding anatomy, I recommend to continue medical therapy with aggressive risk modifications being initiated. Those findings and recommendation were discussed with the patient and he is in full understanding and agreement. Duration of sedation was 18 minutes. KRISHODL / ARYANN: [id number] /
[2020-01-19 11:00] VITALS: BP 128/72; PULSE 54
[2020-01-19] MEDS ORDERED: ATORVASTATIN 40 MG TAB PO SCH (21:00)
== END 2020-01-19 11:28 | disposition home or self-care (01) ==
LOC: CATHCVL 06:05
PROVIDERS: ATTEND Internal Medicine Interventional Cardiology
DX: I25.10 Atherosclerotic heart disease of native coronary artery without angina pectoris (principal); I25.84 Coronary atherosclerosis due to calcified coronary lesion; I10 Essential (primary) hypertension; Z87.891 Personal history of nicotine dependence; E78.00 Pure hypercholesterolemia, unspecified; Z20.828 Contact with and (suspected) exposure to other viral communicable diseases; E78.2 Mixed hyperlipidemia; Z95.5 Presence of coronary angioplasty implant and graft; Z82.49 Family history of ischemic heart disease and other diseases of the circulatory system; Z79.82 Long term (current) use of aspirin; Z79.899 Other long term (current) drug therapy; Z88.8 Allergy status to other drugs, medicaments and biological substances
CPT/HCPCS: 93458; 87635; C1769; C1894; J2001; J3010; J1644; Q9967

== ENCOUNTER → 2020-07-29 | Outpatient (CLI) | payer MEDICARE ==
[2020-07-29 14:39] LABS: African American GFR (CKD) 89.2 (60.0-200.0); Albumin 4.4 g/dL (3.80-4.90); Albumin/Globulin Ratio 1.91 (1.60-3.17); Anion Gap 5.4 mmol/L (4.00-12.00); Calcium 9.3 mg/dL (8.7-10.3); Carbon Dioxide 28.6 mmol/L (21.6-31.8); Chol/HDL Ratio 2.95; Globulin 2.3 g/dL (1.6-3.3); LDL Cholesterol,Calculated 51.6 mg/dL (0.0-131.0); Potassium 5.2 mmol/L (3.5-5.5); Total Bilirubin 0.6 mg/dL (0.2-1.2); Total Protein 6.7 g/dL (6.2-8.2); VLDL Calculation 20.4 mg/dL (5.00-40.00)
== END | disposition home or self-care (01) ==
LOC: LABWHC1 09:05
PROVIDERS: ATTEND Internal Medicine Interventional Cardiology
DX: E78.2 Mixed hyperlipidemia (principal)
CPT/HCPCS: 36415; 80053; 80061

== ENCOUNTER → 2021-08-13 | Outpatient (CLI) | payer MEDICARE ==
[2021-08-13 15:42] LABS: ALT 32 U/L (10-49); AST 22 U/L (14-35); African American GFR (CKD) 88.6 (60.0-200.0); Albumin 4.3 g/dL (3.8-4.9); Albumin/Globulin Ratio 1.72 (1.60-3.17); Alkaline Phosphatase 106 U/L (41-126); Blood Urea Nitrogen 17.7 mg/dL (9.0-27.0); Calcium 9.5 mg/dL (8.7-10.3); Carbon Dioxide 25.8 mmol/L (20.0-27.5); Chloride 105 mmol/L (96-109); Globulin 2.5 g/dL (1.6-3.3); Glucose 119 mg/dL (70-110); Non-African American GFR(CKD) 76.5 (60.0-200.0); Potassium 5.2 mmol/L (3.5-5.5); Sodium 141 mmol/L (135-145); Total Protein 6.8 g/dL (6.2-8.2)
[2021-08-13 15:43] LABS: Chol/HDL Ratio 3.02 Ratio; LDL Cholesterol,Calculated 59.4 mg/dL (0.0-131.0); VLDL Calculation 16.22 mg/dL (5.00-40.00)
== END | disposition home or self-care (01) ==
LOC: LABWHC1 07:14
PROVIDERS: ATTEND Internal Medicine Interventional Cardiology
DX: E78.2 Mixed hyperlipidemia (principal)
CPT/HCPCS: 36415; 80053; 80061

== ENCOUNTER → 2021-09-11 | Outpatient (CLI) | payer MEDICARE ==
[2021-09-11 09:14] LABS: African American GFR (CKD) >90 (>60 ml/min/1.73 sqM); Blood Urea Nitrogen 17 mg/dL (9-20); Non-African American GFR(CKD) 88 (>60 ml/min/1.73 sqM)
--- NOTE | 2021-09-11 11:55 | CT ---
EXAMINATION TYPE: CT chest w con DATE OF EXAM: 09/11/2021 COMPARISON: 08/15/2019 HISTORY: Lung cancer CT DLP: 425.5 mGycm, Automated exposure control for dose reduction was used. CONTRAST: Performed injected with 70 mL of Isovue 300. TECHNIQUE: Axial images were obtained at 5 mm thick sections. Reconstructed images are reviewed on [employer] computer in the coronal plane. FINDINGS: Portion of the thyroid visualized is normal. There may be some pleural thickening or compressive atelectasis along the right posterior lung base. Very minimal right pleural effusion appears to be present. This appears similar to the 08/15/2019 asia rison. No enlarged mediastinal or hilar adenopathy is evident. The ascending aorta diameter at the level o f the main pulmonary artery is 3.9 cm. The main pulmonary artery diameter at the bifurcation is 3.[address] sections are obtained through the upper abdomen. Abdomen is essentially unremarkable. IMPRESSIONS: 1. Stable pleural thickening and/or minimal right pleural effusion
== END | disposition home or self-care (01) ==
LOC: RADCTMAIN 08:36
PROVIDERS: ATTEND Internal Medicine Critical Care Medicine
DX: J90 Pleural effusion, not elsewhere classified (principal)
CPT/HCPCS: 82565; 84520; 71260; 36415; Q9967

== ENCOUNTER 2021-11-26 12:09 | Emergency (ER) | payer MEDICARE ==
[2021-11-26 12:13] VITALS: BP 146/63; PULSE 62; RESP 16; TEMP 97.8
--- NOTE | 2021-11-26 13:04 | ED ---
Skin/Abscess/FB HPI - General Chief complaint: Skin/Abscess/Foreign Body Stated complaint: skin problem Time Seen by Provider: 11/26/21 12:18 Source: patient, RN notes reviewed Mode of arrival: ambulatory Limitations: no limitations - History of Present Illness Initial comments: This is a 70-year-old male who presents to the emergency department for a bump on his face. States that he first noticed this 1-2 days ago. It is to the left of his nose on the left cheek. He has tried squeezing this, but states that it is very painful and he has not been able to express any material. Also states that he has some tenderness near the teeth. Admits to poor dental hygiene. He has been taking Tylenol as needed for pain. Denies any fevers, chills, sore throat, cough, dyspnea, chest pain, palpitations, abdominal pain, nausea, vomiting, diarrhea, back pain, or headaches. MD complaint: abscess/boil Location: face Associated symptoms: denies other symptoms - Related Data Home Medications Medication Instructions Recorded Confirmed Aspirin 81 mg PO BID 09/16/14 01/19/20 Atorvastatin [Lipitor] 40 mg PO HS 01/16/16 01/19/20 Isosorbide Mononitrate ER [Imdur] 60 mg PO QAM 01/16/16 01/19/20 lisinopriL [Zestril] 20 mg PO QAM 01/16/16 01/19/20 Nitroglycerin Sl Tabs [Nitrostat] 0.4 mg SUBLINGUAL Q5M PRN 08/31/16 01/17/20 Ibuprofen [Motrin] 800 mg PO Q8H PRN 01/17/20 01/17/20 Metoprolol Tartrate [Lopressor] 25 mg PO BID 01/17/20 01/19/20 Ezetimibe [Zetia] 10 mg PO DAILY 01/19/20 01/19/20 Previous Rx's Medication Instructions Recorded Sulfamethox-Tmp 800-160Mg [Bactrim 1 tab PO Q12HR 7 Days #14 tab 11/26/21 DS 800-160 mg] Allergies Allergy/AdvReac Type Severity Reaction Status Date / Time No Known Allergies Allergy Verified 11/26/21 12:13 Review of Systems ROS Statement: Those systems with pertinent positive or pertinent negative responses have been documented in the HPI. ROS Other: All systems not noted in ROS Statement are negative. Past Medical History Past Medical History: Coronary Artery Disease (CAD), Chest Pain / Angina, COPD, CVA/TIA, Hyperlipidemia, Hypertension, Osteoarthritis (OA) Additional Past Medical History / Comment(s): CVA-15 yrs ago-no residual, alcoholism-has not drank since 2003, arthritis bilateral hips-scheduled for 2nd total L hip in 2 weeks, diverticular disease, colon polyps-benign, chronic bronchitits. History of Any Multi-Drug Resistant Organisms: None Reported Past Surgical History: Appendectomy, Heart Catheterization, Heart Catheterization With Stent, Joint Replacement Additional Past Surgical History / Comment(s): jeffrey hip replacements, deviated septum sx, colonoscopy/polypectomy, EGD, lobectomy Past Anesthesia/Blood Transfusion Reactions: No Reported Reaction Additional Past Anesthesia/Blood Transfusion Reaction / Comment(s): no hx blood transfusion Date of Last Stent Placement:: 2000 Past Psychological History: No Psychological Hx Reported Past Alcohol Use History: None Reported Past Drug Use History: Marijuana - Past Family History Mother Family Medical History: Cancer, Deep Vein Thrombosis (DVT) Additional Family Medical History / Comment(s): blood clot- not sure in legs or lungs Father Family Medical History: Cancer Additional Family Medical History / Comment(s): Father had colon cancer. He at the age of 60yrs. General Exam Limitations: no limitations General appearance: alert, in no apparent distress Head exam: Present: atraumatic, normocephalic, normal inspection ENT exam: Present: other (Multiple dental caries) Respiratory exam: Present: normal lung sounds bilaterally. Absent: respiratory distress, wheezes, rales, rhonchi, stridor Cardiovascular Exam: Present: regular rate, normal rhythm, normal heart sounds. Absent: systolic murmur, diastolic murmur, rubs, gallop, clicks Neurological exam: Present: alert, oriented X3, CN II-XII intact Psychiatric exam: Present: normal affect, normal mood Skin exam: Present: other (Palpable abscess lateral to the nose on the left cheek. Very minor overlying erythema. The abscess is indurated without any fluctuance. There are no punctate areas.) Course Vital Signs 11/26/21 12:10 Temperature 97.8 F Pulse Rate 62 Respiratory 16 Rate Blood Pressure 146/63 O2 Sat by Pulse 98 Oximetry Medical Decision Making - Medical Decision Making This is a 70-year-old male who presents to the emergency department for an abscess on his face. This may be related to a dental abscess or just coming from the integumentary system. This is not at a point where it can be drained. Prescription for Bactrim provided to be taken for 7 days. Advised warm compresses and alternating with Tylenol and anti-inflammatories as needed for pain relief. Patient states that he chooses to take aspirin as opposed to ibuprofen. Additionally, I stressed the importance of oral hygiene with the patient and becoming established with a dentist for ongoing care. Return precautions reviewed in depth, the patient is instructed to return to the emergency department with any new, worsening, or concerning symptoms. Patient verbalized understanding. This case was discussed in detail with the attending ED physician. Presentation, findings, and treatment plan discussed in detail as well. Disposition Clinical Impression: Abscess Disposition: HOME SELF-CARE Instructions (If sedation given, give patient instructions): Abscess (ED) Additional Instructions: Return to the emergency department with any new, worsening, or concerning symptoms. Take the antibiotic as prescribed for 7 days. Apply warm compresses to the area. Alternate with the Tylenol and aspirin as needed for pain. Prescriptions: Sulfamethox-Tmp 800-160Mg [Bactrim DS 800-160 mg] 1 tab PO Q12HR 7 Days #14 tab Is patient prescribed a controlled substance at d/c from ED?: No Referrals: Harris Arango III, MD [Primary Care Provider] - 1-2 days
== END 2021-11-26 13:20 | disposition home or self-care (01) ==
LOC: EC 12:09
DX: L02.01 Cutaneous abscess of face (principal); E78.5 Hyperlipidemia, unspecified; J44.9 Chronic obstructive pulmonary disease, unspecified; G45.9 Transient cerebral ischemic attack, unspecified; M19.90 Unspecified osteoarthritis, unspecified site; I25.10 Atherosclerotic heart disease of native coronary artery without angina pectoris; I10 Essential (primary) hypertension; R07.9 Chest pain, unspecified; Z79.82 Long term (current) use of aspirin; Z79.02 Long term (current) use of antithrombotics/antiplatelets; Z79.84 Long term (current) use of oral hypoglycemic drugs; Z79.01 Long term (current) use of anticoagulants; Z79.810 Long term (current) use of selective estrogen receptor modulators (SERMs)
CPT/HCPCS: 99282

== ENCOUNTER 2022-02-11 10:34 | Day surgery (SDC) | payer MEDICARE ==
[2022-02-10 12:11] VITALS: BMI 27.1
[~2022-02-11 10:34] MED LIST changes: -ALPRAZolam 0.25 MG TAB PO PRN; -ALPRAZolam 0.5 MG TAB PO PRN; +LACTATED RINGERS 1,000 ML IV SCH; -NITROGLYCERIN SL TABS 0.4 MG TAB SUBLINGUAL PRN; -SODIUM CHLORIDE 0.9% 1,000 ML in EMPTY BAG 1 BAG IV ONE
[2022-02-11 11:29] VITALS: RESP 18; TEMP 98.1
[2022-02-11] MEDS ORDERED: PROPOFOL 10 MG/ML 20 ML VIAL IV ONE (12:15)
[2022-02-11] MEDS ORDERED: LIDOCAINE 2% INJ 20 MG/ML (2 ML VIAL) ONE (12:15)
--- NOTE | 2022-02-11 12:29 | P.PCN ---
Date of Procedure: 02/11/22 Procedure(s) Performed: BRIEF HISTORY: Patient is a 71-year-old pleasant white female scheduled for an elective colonoscopy as a part of prior history of colon polyps. Last colonoscopy was 3 years ago and since multiple colon polyps. PROCEDURE PERFORMED: Colonoscopy snare polypectomy. PREOPERATIVE DIAGNOSIS: History of colon polyp. IV sedation per Anesthesia. PROCEDURE: After informed consent was obtained, the patient, was brought into the endoscopy unit. IV sedation was administered by Anesthesia under continuous monitoring. Digital rectal examination was normal. Initially the Olympus CF-160 flexible video colonoscope was then inserted in the rectum, gradually advanced into the cecum without any difficulty. Careful examination was performed as the scope was gradually being withdrawn. Ileocecal valve and the appendiceal orifice were visualized and appeared normal. Prep was excellent. Mucosa of the cecum, ascending colon appeared normal. In the transverse colon there was a 5 mm polyp removed by snare polypectomy. In the sigmoid colon there was a 1 m polyp removed by snare polypectomy. In the rectum there was a 1 mm and 5 mm sessile polyp removed by snare polypectomy. Rest of the, transverse colon, descending colon, sigmoid colon, and rectum appeared normal. Retroflexion was performed in the rectum and no lesions were seen. The patient tolerated the procedure well. IMPRESSION: 5 mm transverse colon polyp status post polypectomy 1 cm sigmoid colon polyp status post polypectomy 5 mm and 4 mm rectal polyp status post polypectomy . RECOMMENDATIONS: Findings of this examination were discussed with the patient as well as his family.. He was advised to follow with the biopsy results. If the biopsy results adenoma he can have a repeat colonoscopy in 3 years.
[2022-02-11 12:48] VITALS: BP 122/57; PULSE 56
== END 2022-02-11 13:32 | disposition home or self-care (01) ==
LOC: ORWHC2ENDO 10:34
PROVIDERS: ATTEND Internal Medicine Gastroenterology
DX: Z12.11 Encounter for screening for malignant neoplasm of colon (principal); D12.3 Benign neoplasm of transverse colon; D12.5 Benign neoplasm of sigmoid colon; K62.1 Rectal polyp; I25.10 Atherosclerotic heart disease of native coronary artery without angina pectoris; E78.5 Hyperlipidemia, unspecified; I10 Essential (primary) hypertension; J44.9 Chronic obstructive pulmonary disease, unspecified; G40.909 Epilepsy, unspecified, not intractable, without status epilepticus; Z87.891 Personal history of nicotine dependence; Z86.010 Personal history of colon polyps; Z95.5 Presence of coronary angioplasty implant and graft; Z86.73 Personal history of transient ischemic attack (TIA), and cerebral infarction without residual deficits; Z79.899 Other long term (current) drug therapy; Z85.118 Personal history of other malignant neoplasm of bronchus and lung
CPT/HCPCS: 88305; 45385; J2704; J2001

== ENCOUNTER → 2022-02-20 | Outpatient (CLI) | payer MEDICARE ==
[2022-02-20 12:28] LABS: ALT 34 U/L (10-49); AST 27 U/L (14-35); Chol/HDL Ratio 3.01 Ratio; LDL Cholesterol,Calculated 61.1 mg/dL (0.0-131.0); VLDL Calculation 14.28 mg/dL (5.00-40.00)
== END | disposition home or self-care (01) ==
LOC: LABWHC1 08:01
PROVIDERS: ATTEND Internal Medicine Interventional Cardiology
DX: E78.2 Mixed hyperlipidemia (principal)
CPT/HCPCS: 36415; 80061; 84450; 84460

== ENCOUNTER 2022-08-29 08:39 | Emergency (ER) | payer MEDICARE ==
[2022-08-29 08:43] VITALS: BP 177/84; PULSE 70; RESP 18; TEMP 98
--- NOTE | 2022-08-29 08:44 | ED ---
Recheck HPI - General Chief Complaint: Recheck/Abnormal Lab/Rx Stated Complaint: Medication Refill Time Seen by Provider: 08/29/22 08:43 Source: patient, RN notes reviewed Mode of arrival: ambulatory Limitations: no limitations - History of Present Illness Initial Comments: 71-year-old male presented from it with chief complaint of needing medication refill. Patient states that he's been attempting to contact his PCP has been out of the office for the week. Patient is out of his metoprolol. He denies any current symptoms. Denies headache denies chest pain has been diarrhea constipation or fevers or chills. - Related Data Home Medications Medication Instructions Recorded Confirmed Aspirin 81 mg PO DAILY 09/16/14 02/11/22 Atorvastatin [Lipitor] 40 mg PO HS 01/16/16 02/11/22 Isosorbide Mononitrate ER [Imdur] 60 mg PO QAM 01/16/16 02/11/22 lisinopriL [Zestril] 20 mg PO QAM 01/16/16 02/11/22 Nitroglycerin Sl Tabs [Nitrostat] 0.4 mg SUBLINGUAL Q5M PRN 08/31/16 02/11/22 Ezetimibe [Zetia] 10 mg PO DAILY 01/19/20 02/11/22 Previous Rx's Medication Instructions Recorded Metoprolol Tartrate [Lopressor] 25 mg PO BID #60 tab 08/29/22 Allergies Allergy/AdvReac Type Severity Reaction Status Date / Time No Known Allergies Allergy Verified 02/11/22 11:18 Review of Systems ROS Statement: Those systems with pertinent positive or pertinent negative responses have been documented in the HPI. ROS Other: All systems not noted in ROS Statement are negative. Past Medical History Past Medical History: Coronary Artery Disease (CAD), Cancer, Chest Pain / Angina, COPD, CVA/TIA, Hyperlipidemia, Hypertension, Osteoarthritis (OA), Respiratory Disorder Additional Past Medical History / Comment(s): Lung cancer 5 yrs ago. CVA-15 yrs ago-no residual effects. Hx alcoholism-has not drank since 2003. Diverticular disease, colon polyps-benign. Chronic bronchitits. History of Any Multi-Drug Resistant Organisms: None Reported Past Surgical History: Appendectomy, Heart Catheterization, Heart Catheterization With Stent, Joint Replacement Additional Past Surgical History / Comment(s): Left hip replacement X2, right hip replacement, deviated septum surgery, colonoscopy/polypectomy, EGD, right lobectomy, eye surgery. Past Anesthesia/Blood Transfusion Reactions: No Reported Reaction Additional Past Anesthesia/Blood Transfusion Reaction / Comment(s): No hx blood transfusion. Date of Last Stent Placement:: 2000 Past Psychological History: No Psychological Hx Reported Smoking Status: Former smoker Past Alcohol Use History: Abuse Past Drug Use History: Marijuana - Past Family History Mother Family Medical History: Cancer Father Family Medical History: Cancer Additional Family Medical History / Comment(s): Father had colon cancer. He at the age of 60yrs. General Exam Limitations: no limitations General appearance: alert, in no apparent distress Eye exam: Present: normal appearance, PERRL, EOMI. Absent: scleral icterus, conjunctival injection, periorbital swelling Respiratory exam: Present: normal lung sounds bilaterally. Absent: respiratory distress, wheezes, rales, rhonchi, stridor Cardiovascular Exam: Present: regular rate, normal rhythm, normal heart sounds. Absent: systolic murmur, diastolic murmur, rubs, gallop, clicks Course Vital Signs 08/29/22 08:41 Temperature 98 F Pulse Rate 70 Respiratory 18 Rate Blood Pressure 177/84 O2 Sat by Pulse 99 Oximetry Medical Decision Making - Medical Decision Making Was pt. sent in by a medical professional or institution (LAURA Israel, SPEECH CORRECTION CONSULTANT, urgent care, hospital, or halfway...) When possible be specific @ -No Did you speak to anyone other than the patient for history (EMS, parent, family, police, friend...)? What history was obtained from this source @ -No Did you review nursing and triage notes (agree or disagree)? Why? @ -I reviewed and agree with nursing and triage notes Were old charts reviewed (outside hosp., previous admission, EMS record, old EKG, old radiological studies, urgent care reports/EKG's, halfway records)? Report findings @ -No old charts were reviewed Differential Diagnosis (chest pain, altered mental status, abdominal pain women, abdominal pain men, vaginal bleeding, weakness, fever, dyspnea, syncope, headache, dizziness, GI bleed, back pain, seizure, CVA, palpatations, mental health, musculoskeletal)? @ -Medication refill, hypertension, CAD EKG interpreted by me (3pts min.). @ -None X-rays interpreted by me (1pt min.). @ -None done CT interpreted by me (1pt min.). @ -None done U/S interpreted by me (1pt. min.). @ -None done What testing was considered but not performed or refused? (CT, X-rays, U/S, labs)? Why? @ -None What meds were considered but not given or refused? Why? @ -None Did you discuss the management of the patient with other professionals (professionals i.e. , PA, SPEECH CORRECTION CONSULTANT, lab, RT, psych nurse, home health care social worker, feather separator, teacher, chief security and safety officer, family independence case manager)? Give summary @ -No Was smoking cessation discussed for >3mins.? @ -No Was critical care preformed (if so, how long)? @ -No Were there social determinants of health that impacted care today? How? (Homelessness, low income, unemployed, alcoholism, drug addiction, transportation, low edu. Level, literacy, decrease access to med. care, [facility]ci, rehab)? @ -No Was there de-escalation of care discussed even if they declined (Discuss DNR or withdrawal of care, Hospice)? DNR status @ -No What co-morbidities impacted this encounter? (DM, HTN, Smoking, COPD, CAD, Cancer, CVA, ARF, Chemo, Hep., AIDS, mental health diagnosis, sleep apnea, morbid obesity)? @ -Hypertension, CAD Was patient admitted / discharged? Hospital course, mention meds given and route, prescriptions, significant lab abnormalities, going to OR and other pertinent info. @ -[Discharge patient given prescription for his metoprolol. Undiagnosed new problem with uncertain prognosis? @ -No Drug Therapy requiring intensive monitoring for toxicity (Heparin, Nitro, Insulin, Cardizem)? @ -No Were any procedures done? @ -No Diagnosis/symptom? @ -Medication refill, hypertension Acute, or Chronic, or Acute on Chronic? @ -Acute Uncomplicated (without systemic symptoms) or Complicated (systemic symptoms)? @ -Uncomplicated Side effects of treatment? @ -No Exacerbation, Progression, or Severe Exacerbation? @ -No Poses a threat to life or bodily function? How? (Chest pain, [place], [place], pneumonia, PE, COPD, DKA, ARF, appy, cholecystitis, CVA, Diverticulitis, Homicidal, Suicidal, threat to staff... and all critical care pts) @ -No Disposition Clinical Impression: Encounter for medication refill, Hypertension Disposition: HOME SELF-CARE Condition: Stable Additional Instructions: Please return to the Emergency Department if symptoms worsen or any other concerns. Prescriptions: Metoprolol Tartrate [Lopressor] 25 mg PO BID #60 tab Is patient prescribed a controlled substance at d/c from ED?: No Referrals: Harris Arango III, MD [Primary Care Provider] - 1-2 days Time of Disposition: 08:44
== END 2022-08-29 08:48 | disposition home or self-care (01) ==
LOC: EC 08:39
DX: Z76.0 Encounter for issue of repeat prescription (principal); I10 Essential (primary) hypertension; I25.10 Atherosclerotic heart disease of native coronary artery without angina pectoris; J44.9 Chronic obstructive pulmonary disease, unspecified; E78.5 Hyperlipidemia, unspecified; M19.90 Unspecified osteoarthritis, unspecified site; Z86.73 Personal history of transient ischemic attack (TIA), and cerebral infarction without residual deficits; Z87.891 Personal history of nicotine dependence; F12.90 Cannabis use, unspecified, uncomplicated; Z79.899 Other long term (current) drug therapy; Z79.82 Long term (current) use of aspirin
CPT/HCPCS: 99281

== ENCOUNTER → 2022-09-12 | Outpatient (CLI) | payer MEDICARE ==
[2022-09-12 23:35] LABS: ALT 34 U/L (10-49); AST 23 U/L (14-35); Albumin/Globulin Ratio 1.43 Ratio (1.60-3.17); Alkaline Phosphatase 115 U/L (41-126); BUN/Creat Ratio 21.22 Ratio (12.00-20.00); Blood Urea Nitrogen 19.1 mg/dL (9.0-27.0); Calcium 9.4 mg/dL (8.7-10.3); Chloride 107 mmol/L (96-109); Chol/HDL Ratio 2.66 Ratio; Globulin 2.8 d/dL (1.6-3.3); Glucose 101 mg/dL (70-110); LDL Cholesterol,Calculated 50.2 mg/dL (0.0-131.0); Potassium 4.9 mmol/L (3.5-5.5); Sodium 142 mmol/L (135-145); Total Bilirubin 0.5 mg/dL (0.3-1.2); Total Protein 6.8 d/dL (6.2-8.2); VLDL Calculation 12.86 mg/dL (5.00-40.00)
== END | disposition home or self-care (01) ==
LOC: LABWHC1 08:22
PROVIDERS: ATTEND Internal Medicine Interventional Cardiology
DX: E78.2 Mixed hyperlipidemia (principal)
CPT/HCPCS: 36415; 80053; 80061

== ENCOUNTER 2023-02-11 06:40 | Emergency (ER) | payer MEDICARE ==
[2023-02-11 06:57] VITALS: BP 150/70; PULSE 66; RESP 18; TEMP 97.7
--- NOTE | 2023-02-11 06:59 | ED ---
Skin/Abscess/FB HPI - General Chief complaint: Skin/Abscess/Foreign Body Stated complaint: Growth on right leg and face Time Seen by Provider: 02/11/23 06:58 Source: patient, RN notes reviewed Mode of arrival: ambulatory Limitations: no limitations - History of Present Illness Initial comments: 72-year-old male presents emergency Department with chief complaint of growth on his right leg he states his been getting bigger for the last 2 years. He states tonight has been on his face. Patient states that is slightly uncomfortable. He has not seen anybody for this at this point. Patient denies any fevers chills no other complaints. - Related Data Home Medications Medication Instructions Recorded Confirmed Aspirin 81 mg PO DAILY 09/16/14 02/11/22 Atorvastatin [Lipitor] 40 mg PO HS 01/16/16 02/11/22 Isosorbide Mononitrate ER [Imdur] 60 mg PO QAM 01/16/16 02/11/22 lisinopriL [Zestril] 20 mg PO QAM 01/16/16 02/11/22 Nitroglycerin Sl Tabs [Nitrostat] 0.4 mg SUBLINGUAL Q5M PRN 08/31/16 02/11/22 Ezetimibe [Zetia] 10 mg PO DAILY 01/19/20 02/11/22 Previous Rx's Medication Instructions Recorded Metoprolol Tartrate [Lopressor] 25 mg PO BID #60 tab 08/29/22 Allergies Allergy/AdvReac Type Severity Reaction Status Date / Time No Known Allergies Allergy Verified 02/11/23 06:42 Review of Systems ROS Statement: Those systems with pertinent positive or pertinent negative responses have been documented in the HPI. ROS Other: All systems not noted in ROS Statement are negative. Past Medical History Past Medical History: Coronary Artery Disease (CAD), Cancer, Chest Pain / Angina, COPD, CVA/TIA, Hyperlipidemia, Hypertension, Osteoarthritis (OA), Respiratory Disorder Additional Past Medical History / Comment(s): Lung cancer 5 yrs ago. CVA-15 yrs ago-no residual effects. Hx alcoholism-has not drank since 2003. Diverticular disease, colon polyps-benign. Chronic bronchitits. History of Any Multi-Drug Resistant Organisms: None Reported Past Surgical History: Appendectomy, Heart Catheterization, Heart Catheterization With Stent, Joint Replacement Additional Past Surgical History / Comment(s): Left hip replacement X2, right hip replacement, deviated septum surgery, colonoscopy/polypectomy, EGD, right lobectomy, eye surgery. Past Anesthesia/Blood Transfusion Reactions: No Reported Reaction Additional Past Anesthesia/Blood Transfusion Reaction / Comment(s): No hx blood transfusion. Date of Last Stent Placement:: 2000 Past Psychological History: No Psychological Hx Reported Smoking Status: Former smoker Past Alcohol Use History: None Reported, Abuse Past Drug Use History: Marijuana - Past Family History Mother Family Medical History: Cancer Father Family Medical History: Cancer Additional Family Medical History / Comment(s): Father had colon cancer. He at the age of 60yrs. General Exam Limitations: no limitations General appearance: alert, in no apparent distress Head exam: Present: atraumatic, normocephalic, normal inspection Eye exam: Present: normal appearance, PERRL, EOMI. Absent: scleral icterus, conjunctival injection, periorbital swelling ENT exam: Present: normal oropharynx, mucous membranes moist. Absent: normal exam (Slightly mobile soft nontender abdomen erythematous mass in the for your regular region bilaterally) Neck exam: Present: normal inspection, full ROM. Absent: tenderness, meningismus, lymphadenopathy Respiratory exam: Present: normal lung sounds bilaterally. Absent: respiratory distress, wheezes, rales, rhonchi, stridor Cardiovascular Exam: Present: regular rate, normal rhythm, normal heart sounds. Absent: systolic murmur, diastolic murmur, rubs, gallop, clicks Skin exam: Present: warm, dry, intact, normal color, other (Right thigh shows evidence small 1 cm firm tissue mass noted there is a centralized opening). Absent: rash Course Vital Signs 02/11/23 06:42 Temperature 97.7 F Pulse Rate 66 Respiratory 18 Rate Blood Pressure 150/70 O2 Sat by Pulse 98 Oximetry Medical Decision Making - Medical Decision Making Was pt. sent in by a medical professional or institution (, PA, NUCLEAR PLANT OPERATOR, urgent care, hospital, or group home...) When possible be specific @ -No Did you speak to anyone other than the patient for history (EMS, parent, family, police, friend...)? What history was obtained from this source @ -No Did you review nursing and triage notes (agree or disagree)? Why? @ -I reviewed and agree with nursing and triage notes Were old charts reviewed (outside hosp., previous admission, EMS record, old EKG, old radiological studies, urgent care reports/EKG's, group home records)? Report findings @ -No old charts were reviewed Differential Diagnosis (chest pain, altered mental status, abdominal pain women, abdominal pain men, vaginal bleeding, weakness, fever, dyspnea, syncope, headache, dizziness, GI bleed, back pain, seizure, CVA, palpatations, mental health, musculoskeletal)? @ -[Abscess, lipoma, skin cancer, EKG interpreted by me (3pts min.). @ -None X-rays interpreted by me (1pt min.). @ -None done CT interpreted by me (1pt min.). @ -None done U/S interpreted by me (1pt. min.). @ -None done What testing was considered but not performed or refused? (CT, X-rays, U/S, labs)? Why? @ -None What meds were considered but not given or refused? Why? @ -None Did you discuss the management of the patient with other professionals (professionals i.e. , PA, NUCLEAR PLANT OPERATOR, lab, RT, psych nurse, social services coordinator, marketing copywriter, teacher, protocol officer, field nurse case manager)? Give summary @ -No Was smoking cessation discussed for >3mins.? @ -No Was critical care preformed (if so, how long)? @ -No Were there social determinants of health that impacted care today? How? (Homelessness, low income, unemployed, alcoholism, drug addiction, transportation, low edu. Level, literacy, decrease access to med. care, penitentiary, rehab)? @ -No Was there de-escalation of care discussed even if they declined (Discuss DNR or withdrawal of care, Hospice)? DNR status @ -No What co-morbidities impacted this encounter? (DM, HTN, Smoking, COPD, CAD, Cancer, CVA, ARF, Chemo, Hep., AIDS, mental health diagnosis, sleep apnea, morbid obesity)? @ -None Was patient admitted / discharged? Hospital course, mention meds given and route, prescriptions, significant lab abnormalities, going to OR and other pertinent info. @ -Discharge patient has multiple what appears to be lipoma-type lesions. Patient is recommended to follow-up with dermatology for confirmation and possible removal. Undiagnosed new problem with uncertain prognosis? @ -No Drug Therapy requiring intensive monitoring for toxicity (Heparin, Nitro, Insulin, Cardizem)? @ -No Were any procedures done? @ -No Diagnosis/symptom? @ -Tissue overgrowth, lipoma Acute, or Chronic, or Acute on Chronic? @ -[Acute Uncomplicated (without systemic symptoms) or Complicated (systemic symptoms)? @ -Uncomplicated Side effects of treatment? @ -No Exacerbation, Progression, or Severe Exacerbation? @ -No Poses a threat to life or bodily function? How? (Chest pain, [place], [place], pneumonia, PE, COPD, DKA, ARF, appy, cholecystitis, CVA, Diverticulitis, Homicidal, Suicidal, threat to staff... and all critical care pts) @ -No Disposition Clinical Impression: Lipoma, Skin mass Disposition: HOME SELF-CARE Condition: Stable Instructions (If sedation given, give patient instructions): Lipoma (ED), Soft Tissue Mass (ED) Additional Instructions: Please follow up with PCP, dermatology.Please return to the Emergency Department if symptoms worsen or any other concerns. Is patient prescribed a controlled substance at d/c from ED?: No Referrals: Duke Bell MD [REFERRING] - 1-2 days Nava Huitron MD [STAFF PHYSICIAN] - 1-2 days Time of Disposition: 07:44
== END 2023-02-11 08:04 | disposition home or self-care (01) ==
LOC: EC 06:40
DX: D17.9 Benign lipomatous neoplasm, unspecified (principal); I10 Essential (primary) hypertension; I25.10 Atherosclerotic heart disease of native coronary artery without angina pectoris; J44.9 Chronic obstructive pulmonary disease, unspecified; M19.90 Unspecified osteoarthritis, unspecified site; E78.5 Hyperlipidemia, unspecified; Z86.73 Personal history of transient ischemic attack (TIA), and cerebral infarction without residual deficits; Z87.891 Personal history of nicotine dependence; F12.90 Cannabis use, unspecified, uncomplicated; Z79.82 Long term (current) use of aspirin; Z79.899 Other long term (current) drug therapy
CPT/HCPCS: 99283

== ENCOUNTER → 2023-02-26 | Outpatient (CLI) | payer MEDICARE ==
[2023-02-26 16:17] LABS: ALT 33 U/L (10-49); AST 24 U/L (14-35); Albumin/Globulin Ratio 1.43 Ratio (1.60-3.17); Alkaline Phosphatase 109 U/L (41-126); Blood Urea Nitrogen 18.9 mg/dL (9.0-27.0); Calcium 9.8 mg/dL (8.7-10.3); Carbon Dioxide 27.6 mmol/L (21.6-31.8); Chloride 108 mmol/L (96-109); Chol/HDL Ratio 2.74 Ratio; Globulin 2.8 g/dL (1.6-3.3); Glucose 94 mg/dL (70-110); Sodium 145 mmol/L (135-145); Total Bilirubin 0.7 mg/dL (0.3-1.2); Total Protein 6.8 g/dL (6.2-8.2); VLDL Calculation 17.84 mg/dL (5.00-40.00)
== END | disposition home or self-care (01) ==
LOC: LABWHC1 08:33
PROVIDERS: ATTEND Internal Medicine Interventional Cardiology
DX: E78.2 Mixed hyperlipidemia (principal)
CPT/HCPCS: 36415; 80053; 80061

== ENCOUNTER → 2023-03-24 | Outpatient (CLI) | payer MEDICARE | END | disposition home or self-care (01) | LOC: LABPAT 07:56 | PROVIDERS: ATTEND Internal Medicine Interventional Cardiology | DX: Z53.9 Procedure and treatment not carried out, unspecified reason (principal) ==

== ENCOUNTER 2023-03-31 07:48 | Day surgery (SDC) | payer MEDICARE ==
[2023-03-29 11:48] VITALS: BMI 27.1
[~2023-03-31 07:48] MED LIST changes: +ALPRAZolam 0.25 MG TAB PO PRN; +ALPRAZolam 0.5 MG TAB PO PRN; +ASPIRIN 325 MG TAB PO STA; -LACTATED RINGERS 1,000 ML IV SCH; +NITROGLYCERIN SL TABS 0.4 MG TAB SUBLINGUAL PRN; +SODIUM CHLORIDE 0.9% 1,000 ML in EMPTY BAG 1 BAG IV SCH
[2023-03-31] MEDS ORDERED: SODIUM CHLORIDE 0.9% 1,000 ML IV ONE (07:54)
[2023-03-31 08:38] VITALS: RESP 16; TEMP 98.3
[2023-03-31] MEDS ORDERED: fentaNYL (PF) 50 MCG/ML 2 ML AMP ONE (08:59)
[2023-03-31] MEDS ORDERED: VERAPAMIL 2.5 MG/ML 2 ML AMP ONE (08:59)
[2023-03-31] MEDS ORDERED: HEPARIN SODIUM 1,000 UN/ML (10ML VL) ONE (09:00)
[2023-03-31] MEDS ORDERED: LIDOCAINE 1% INJ 10MG/ML (20 ML MDV) ONE (09:00)
[2023-03-31] MEDS ORDERED: MIDAZOLAM 2 MG/2 ML VIAL IVP ONE (09:16)
[2023-03-31] MEDS ORDERED: fentaNYL (PF) 50 MCG/ML 2 ML AMP IVP ONE (09:17)
[2023-03-31] MEDS ORDERED: IV FLUID CONTINUATION 950 ML IV ONE (09:24)
--- NOTE | 2023-03-31 09:30 | P.PCN ---
Date of Procedure: 03/31/23 Description of Procedure: Indication: Mitral regurgitation Procedure Description: After explaining the procedure to the patient, it's risk and complications, blood pressure, heart rate and O2 saturation were monitored. The throat was sprayed with Cetacaine. Patient received 2 mg intravenous Versed, 50 mcg intravenous fentanyl. The probe was introduced into the esophagus without difficulty. Images were obtained. Following that, the probe was removed. There was no immediate complication. Findings: Left atrial size is mildly dilated, left atrial appendage is normal. Left ventricular size and systolic function is normal. The aortic valve is a tricuspid valve moderately calcified with reduced opening. The mitral valve revealed bileaflet prolapse of mild degree. Tricuspid valve is normal. Descending thoracic aorta revealed mild atherosclerotic changes. No pericardial effusion was noted. Contrast bubble study showed no evidence of shunting with Valsalva maneuver. Doppler: Pulse wave and color Doppler were obtained, and revealed moderate multi jet mitral regurgitation and moderate aortic regurgitation with mild tricuspid regurgitation. There was no shunting by color Doppler study. Conclusion: 1. Dilated left atrium with normal appearance of the left atrial appendage 2. Normal ventricle size and systolic function 3. Moderate multi jet mitral regurgitation 4. Moderate eccentric aortic regurgitation 5. No shunting across the interatrial septum
[2023-03-31] MEDS ORDERED: LIDOCAINE 1% INJ 10MG/ML (30 ML VIAL-PF) SQ ONE (09:39)
[2023-03-31] MEDS ORDERED: LIDOCAINE 1% INJ 10MG/ML (20 ML MDV) SQ ONE (09:41)
[2023-03-31] MEDS ORDERED: VERAPAMIL SYRINGE (5 MG/10 ML) INTRAARTER ONE (09:41)
[2023-03-31] MEDS ORDERED: HEPARIN SODIUM 1,000 UN/ML (10ML VL) IVP ONE (09:54)
[2023-03-31] MEDS ORDERED: IOPAMIDOL-370 100ML BTL IVP ONE (10:15)
[2023-03-31] MEDS ORDERED: RX INFO: IV CONTRAST WAS GIVEN 1 EACH MISC MISCELLANE PRN (10:22)
[2023-03-31 10:29] LABS: O2 Sat Blood Gas 67.5 %
[2023-03-31 10:30] LABS: O2 Sat Blood Gas 93.8 %
[2023-03-31] MEDS ORDERED: SODIUM CHLORIDE 0.9% 1,000 ML IV SCH (10:30)
[2023-03-31 10:31] LABS: O2 Sat Blood Gas 65.1 %
--- NOTE | 2023-03-31 10:31 | P.CARDCATH ---
Date of Procedure: 03/31/23 Description of Procedure: Cardiac Catheterization: The patient is a 72-year-old male with a known history of CAD, hypertension, hyperlipidemia, aortic and mitral regurgitation who has been complaining of progressive dyspnea and had an abnormal MPI. Recommendations were made regarding cardiac catheterization, the risks and the complications were discussed with the patient who is in full understanding and agreement. Procedure Description: Patient was brought to general production laborer in fasting semi-sedated state after receiving Fentanyl and Benadryl achieiving moderate conscious sedated state. Using Xylocaine Anesthesia and modified Seldinger technique, a 6-Bulgarian sheath was introduced in the right radial artery . The venous access in the right basilic vein was exchanged to a 6 Bulgarian sheath. Right heart catheterization was performed using Devine-Gold catheter. Multiple pressures and samples were obtained. Cardiac output by thermodilution was calculated. Subsequently, selective coronary angiography was performed using a 5-Bulgarian 3.5 bend Dominique catheter. Multiple views of the coronary artery including hemiaxial views were obtained. The 5 Bulgarian pigtail catheter was used to obtain an FAROESE aortogram. Following that, catheter and sheath were removed. Hemostasis was obtained with deployment of vascular band . There was no immediate complication. Patient was returned to room in stable condition. Of note, the patient received a total of 4500 units of intravenous heparin as well as intra-arterial v erapamil. Findings: Fluoroscopy: Calcification of the aortic valve and the coronary arteries was noted Left main: This is a large size vessel, bifurcating into LAD and left circumflex, left main has no significant obstructive disease. LAD: This is a large size vessel, reaching to the apex giving rise to 2 small diagonal branch. The LAD and its branches have no high-grade stenosis, 10 to 20% plaque was noted in the midsegment Left circumflex: This is a large nondominant vessel giving rise to 3 obtuse marginal branch. The left circumflex in the mid segment has a 20% plaque without any high-grade stenosis RCA: This is a large dominant vessel, bifurcating into PDA and PLV. The stented segment in the proximal RCA is patent with no evidence of significant in-stent restenosis. There was a 10 to 20% plaque distal to the stent Left Ventriculogram: Not performed. Aortogram: Aortogram performed in the FAROESE view and revealed 3-4+ aortic regurgitation Hemodynamics: Pulmonary artery systolic of 40 with a diastolic of 15 and a mean of 25 mmHg, right ventricular systolic pressure of 42 with an end-diastolic of 12 mmHg, right atrium A wave of 8 V wave of 8 with a mean of 5 mmHg. Cardiac output by thermodilution 3.95 L/min. Conclusion: 1. Calcified coronary arteries and aortic valve 2. Mild triple-vessel disease 3. 3-4+ aortic regurgitation 4. Mild pulmonary hypertension Recommendations: At this time I will continue medical therapy, close follow-up of his aortic valve will be done to see if he is a candidate to undergo aortic valve surgery. The findings and the recommendations were discussed with the patient and he is in full understanding and agreement. Duration of sedation is 43 minutes.
[2023-03-31 17:20] VITALS: BP 131/59; PULSE 67
[2023-03-31] MEDS ORDERED: METOPROLOL TARTRATE 25 MG TAB PO SCH (21:00)
[2023-04-01] MEDS ORDERED: ATORVASTATIN 40 MG TAB PO SCH (09:00)
[2023-04-01] MEDS ORDERED: ASPIRIN 81 MG PO SCH (09:00)
[2023-04-01] MEDS ORDERED: EZETIMIBE 10 MG TAB PO SCH (09:00)
[2023-04-01] MEDS ORDERED: lisinopriL 20 MG TAB PO SCH (09:00)
[2023-04-01] MEDS ORDERED: ISOSORBIDE MONONITRATE ER 60 MG TAB.ER.24H PO SCH (09:00)
== END 2023-03-31 14:47 | disposition home or self-care (01) ==
LOC: CATHCVL 07:48
PROVIDERS: ATTEND Internal Medicine Interventional Cardiology
DX: I08.0 Rheumatic disorders of both mitral and aortic valves (principal); I25.10 Atherosclerotic heart disease of native coronary artery without angina pectoris; I10 Essential (primary) hypertension; E78.5 Hyperlipidemia, unspecified; Z79.01 Long term (current) use of anticoagulants; Z79.899 Other long term (current) drug therapy
CPT/HCPCS: 93312; 93320; 93325; 93456; 93567; 85018; 82810; 99152; 99153 ×2; J2250; J2001 ×2; J3010; J1644; Q9967

== ENCOUNTER → 2024-01-19 | Outpatient (CLI) | payer MEDICARE ==
[2024-01-19 16:14] LABS: BUN/Creat Ratio 25.11 Ratio (12.00-20.00); Blood Urea Nitrogen 22.6 mg/dL (9.0-27.0); Calcium 9.4 mg/dL (8.7-10.3); Carbon Dioxide 26.5 mmol/L (21.6-31.8); Chloride 104 mmol/L (96-109); Glucose 98 mg/dL (70-110); Potassium 4.5 mmol/L (3.5-5.5); Sodium 138 mmol/L (135-145)
[2024-01-19 16:15] LABS: NT-Pro-B-Type Natriuretic Pept 1481 pg/mL (0-125)
== END | disposition home or self-care (01) ==
LOC: LABWHC1 07:46
PROVIDERS: ATTEND Internal Medicine Interventional Cardiology
DX: I35.1 Nonrheumatic aortic (valve) insufficiency (principal); R06.02 Shortness of breath
CPT/HCPCS: 36415; 80048; 83880

== ENCOUNTER → 2024-02-09 | Outpatient (CLI) | payer MEDICARE ==
[2024-02-09 15:44] LABS: Blood Urea Nitrogen 32.7 mg/dL (9.0-27.0); Calcium 9.6 mg/dL (8.7-10.3); Carbon Dioxide 27.9 mmol/L (21.6-31.8); Chloride 106 mmol/L (96-109); Glucose 111 mg/dL (70-110); Potassium 5.3 mmol/L (3.5-5.5); Sodium 144 mmol/L (135-145)
[2024-02-09 15:46] LABS: NT-Pro-B-Type Natriuretic Pept 276 pg/mL (0-125)
== END | disposition home or self-care (01) ==
LOC: LABWHC1 09:18
PROVIDERS: ATTEND Internal Medicine Interventional Cardiology
DX: I35.2 Nonrheumatic aortic (valve) stenosis with insufficiency (principal); I50.32 Chronic diastolic (congestive) heart failure
CPT/HCPCS: 36415; 80048; 83880

== ENCOUNTER → 2024-05-30 | Outpatient (CLI) | payer MEDICARE ==
[2024-05-30 10:27] LABS: ALT 39 U/L (10-49); AST 33 U/L (14-35); Albumin 4.1 g/dL (3.8-4.9); Albumin/Globulin Ratio 1.46 Ratio (1.60-3.17); Alkaline Phosphatase 123 U/L (41-126); BUN/Creat Ratio 22.09 Ratio (12.00-20.00); Blood Urea Nitrogen 24.3 mg/dL (9.0-27.0); Calcium 9.4 mg/dL (8.7-10.3); Carbon Dioxide 26.4 mmol/L (21.6-31.8); Chloride 100 mmol/L (96-109); Chol/HDL Ratio 3.21 Ratio; Globulin 2.8 g/dL (1.6-3.3); Glucose 115 mg/dL (70-110); LDL Cholesterol,Calculated 57.1 mg/dL (0.0-131.0); Sodium 137 mmol/L (135-145); Total Bilirubin 0.3 mg/dL (0.3-1.2); Total Protein 6.9 g/dL (6.2-8.2)
[2024-05-30 21:19] LABS: NT-Pro-B-Type Natriuretic Pept 233 pg/mL (0-125)
== END | disposition home or self-care (01) ==
LOC: LABWHC1 07:12
PROVIDERS: ATTEND Internal Medicine Interventional Cardiology
DX: I35.1 Nonrheumatic aortic (valve) insufficiency (principal); I50.32 Chronic diastolic (congestive) heart failure; E78.2 Mixed hyperlipidemia
CPT/HCPCS: 36415; 80053; 80061; 83880

== ENCOUNTER → 2024-06-19 | Outpatient (CLI) | payer MEDICARE ==
[2024-06-19 13:27] LABS: African American GFR (CKD) 90 (>60 ml/min/1.73 sqM); Blood Urea Nitrogen 29 mg/dL (9-20); Non-African American GFR(CKD) 77 (>60 ml/min/1.73 sqM)
--- NOTE | 2024-06-19 14:34 | CT ---
EXAMINATION TYPE: CT chest w con DATE OF EXAM: 06/19/2024 2:05 PM COMPARISON: None. CLINICAL INDICATION: Male, 73 years old with history of HX OF LUNG CANCER Z85.118, f/u lung ca TECHNIQUE: Axial images were obtained at 5 mm thick sections. Reconstructed images are reviewed on [place] computer in the coronal plane. Contrast used:100 mL of Isovue 300 with IV Contrast, (none if empty) Oral contrast used: (none if empty) CT DLP: 377.1 mGycm, Automated exposure control for dose reduction was used. FINDINGS: Portion of the thyroid visualized is normal. There is an ill-defined density within the right lower lung field measuring 1.9 x 1.1 cm. Series 4 im age 45. This is new from comparison. Additional workup with PET CT recommended There is a small right pleural effusion. Right lung volume is diminished. No enlarged mediastinal or hilar adenopathy is evident. The ascending aorta diameter at the level o f the main pulmonary artery is 3.8 cm. The main pulmonary artery diameter at the bifurcation is 3.3 cm. No significant coronary artery calcifications. Limited CT sections are obtained through the upper abdomen. Abdomen is essentially unremarkable. IMPRESSION: 1. New irregular density right lower lung field suspicious for metastatic disease. Additional workup with PET CT recommended. 2. Small right pleural effusion [facility], , 06/19/2024 2:31 PM
== END | disposition home or self-care (01) ==
LOC: RADCTMAIN 12:40
DX: Z85.118 Personal history of other malignant neoplasm of bronchus and lung (principal); I10 Essential (primary) hypertension; J90 Pleural effusion, not elsewhere classified
CPT/HCPCS: 82565; 84520; 71260; 36415; Q9967

== ENCOUNTER → 2024-07-20 | Outpatient (CLI) | payer MEDICARE ==
--- NOTE | 2024-07-24 18:58 | PE ---
EXAMINATION TYPE: PET CT fusion skull to thigh DATE OF EXAM: 07/20/2024 CLINICAL INDICATION:Male, 73 years old with history of Z85.118 Hx of lung ca; TECHNIQUE: Following the intravenous administration of 10.27 mCi of F-18 FDG, whole body images are performed from the skull base to the Mid thigh. Images are reviewed on the computer in the coronal, axial, and sagittal planes. Reconstructed rotating images are created on independent workstation an d reviewed on the computer. A non-contrast CT is performed in conjunction with the PET scan. Glucos e level 117 mg/dL CT DLP: 648.6 mGycm, Automated exposure control for dose reduction was used. COMPARISON: CT 06/19/2024, PET/CT 03/13/2017, MRI: None FINDINGS: Mediastinal SUV mean is 3.1. Hepatic parenchyma SUV mean is 3.5. SKULL BASE AND NECK: No suspicious radiotracer activity. CHEST, MEDIASTINUM, AND HILAR REGION: Suspicious uptake identified; examples include: Right lower lobe pulmonary nodule measuring 21 x 13 mm Max SUV 6.2 with central cavitation. Intense uptake which is linear along the pleura anteriorly and more posteriorly possibly due to atele ctasis changes. Posteriorly max SUV 4.3 and more anteriorly max SUV 4.2. ABDOMEN AND PELVIS: Increased FDG activity within the prostate gland along the left posterior lateral max SUV 5.0. MUSCULOSKELETAL STRUCTURES: Scattered sclerotic foci throughout the osseous structures. * Examples include: left iliac bone is enlarged in size now measuring 8 mm previously 2 mm. Left pos terior iliac bone near the sacroiliac joint measuring 3 mm. Other lesions appear stable. * Persistent uptake around the left hip arthroplasty likely on a degenerative basis. OTHER CT: Severe aortic valve calcifications. Severe coronary artery cusp patient's. Mild cardiomegal y. Bilaterally aphakia. Atherosclerosis of the carotid bifurcations. Infrarenal abdominal aortic fusi form dilation up to 38 mm. Scattered colonic diverticula. Bilateral hip arthroplasties. Hardware appe ars intact. Prostate gland appears enlarged. Streak artifact limits evaluation. Scattered colonic div erticula. IMPRESSION: 1. Right lower lobe pulmonary nodule with increased metabolic activity concerning for malignancy unt il proven otherwise. 2. Scattered sclerotic foci some which are increasing in size and couple that are new. Correlate for etiologies such as recurrent lung cancer versus prostate adenocarcinoma given intense left posterior lateral prostate uptake. Correlate with serum PSA. 3. 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 [facility], , 07/24/2024 6:56 PM
== END | disposition home or self-care (01) ==
LOC: RADPETMAIN 07:10
DX: R91.1 Solitary pulmonary nodule (principal); I71.43 Infrarenal abdominal aortic aneurysm, without rupture; Z85.118 Personal history of other malignant neoplasm of bronchus and lung
CPT/HCPCS: 78815; A9552

== ENCOUNTER 2024-08-17 11:18 | Day surgery (SDC) | payer MEDICARE ==
[2024-08-16 14:48] VITALS: BMI 25.7
[~2024-08-17 11:18] MED LIST changes: -ALPRAZolam 0.25 MG TAB PO PRN; -ALPRAZolam 0.5 MG TAB PO PRN; -ASPIRIN 325 MG TAB PO STA; +LACTATED RINGERS 1,000 ML IV SCH; -NITROGLYCERIN SL TABS 0.4 MG TAB SUBLINGUAL PRN; -SODIUM CHLORIDE 0.9% 1,000 ML in EMPTY BAG 1 BAG IV SCH
--- NOTE | 2024-08-17 12:38 | CT ---
EXAMINATION TYPE: CT Chest wo ION protocol DATE OF EXAM: 08/17/2024 11:46 AM COMPARISON: Pet/CT. CLINICAL INDICATION: Male, 73 years old with history of Bronchoscopy with Ion Robot/Bronchial Navigat ion; PH[facility], Ion bronchoscopy TECHNIQUE: Multiple axial images were obtained through the chest. Sagittal and coronal reformats were created for review. MIP was performed on a separate workstation. Contrast used: mL of (None if empty) Oral contrast used: (None if empty) CT DLP: 572 mGycm, Automated exposure control for dose reduction was used. FINDINGS: LUNGS/ PLEURA: [id number] cystic lesion in the right lower lobe redemonstrated measuring 16 x 9 m m series 3 image 412. Scattered emphysema changes. Interstitial prominence throughout the left lung g reater than the right. No focal consolidation, pneumothorax or pleural effusion. AIRWAY: Patent and unremarkable. HEART: Size within normal limits. No significant coronary artery calcifications. MEDIASTINUM: Right perihilar VASCULATURE: infrarenal fusiform dilation remains present up to 3.7 cm. MUSCULOSKELETAL: No acute osseous abnormalities, stable sclerotic focus in the L2 vertebral body. Sca ttered multilevel degeneration changes at this time SOFT TISSUES/LYMPH NODES: Unremarkable. LOWER NECK: No significant findings. UPPER ABDOMEN: No significant findings. IMPRESSION: Right lower lobe cystic nodule remains present. Attention on pathology. [facility], , 08/17/2024 12:36 PM
[2024-08-17] MEDS: IV FLUID CONTINUATION 1,000 ML IV ONE (12:48)
[2024-08-17] MEDS: LACTATED RINGERS 1,000 ML IV SCH (12:48)
[2024-08-17] MEDS ORDERED: VASOPRESSIN 20 UNIT/ML 1 ML VIAL ONE (13:33)
[2024-08-17] MEDS ORDERED: LIDOCAINE 1% INJ 10MG/ML (20 ML MDV) ONE (13:33)
[2024-08-17] MEDS ORDERED: fentaNYL (PF) 50 MCG/ML 2 ML AMP ONE (13:33)
[2024-08-17] MEDS ORDERED: DEXAMETHASONE SOD PHOSPHATE 4 MG/ML 1 ML VIAL ONE (13:33)
[2024-08-17] MEDS ORDERED: ePHEDrine 50 MG/ML 1 ML VIAL ONE (13:33)
[2024-08-17] MEDS ORDERED: PROPOFOL 10 MG/ML 20 ML VIAL IV ONE (13:33)
[2024-08-17] MEDS ORDERED: ONDANSETRON 4 MG/2 ML VIAL ONE (13:33)
[2024-08-17] MEDS ORDERED: GLYCOPYRROLATE 0.2 MG/ML 2 ML VIAL ONE (13:33)
[2024-08-17] MEDS ORDERED: SUCCINYLCHOLINE CHLORIDE 200 MG/10 ML VIAL IV ONE (13:33)
[2024-08-17] MEDS ORDERED: MIDAZOLAM 2 MG/2 ML VIAL ONE (13:33)
[2024-08-17] MEDS: LACTATED RINGERS 1,000 ML IV ONE (15:08)
--- NOTE | 2024-08-17 15:20 | P.PCN ---
Date of Procedure: 08/17/24 Operative Findings: Preoperative Diagnosis: Right lower lobe pulmonary nodule, 16x9 mm, PET Avid Postoperative Diagnosis: Right lower lobe pulmonary nodule, 16x9 mm, PET avod Procedure(s) Performed: Flexible bronchoscopy Robotic-assisted bronchoscopy and addition to radial ultrasound evaluation of the right lower lobe pulmonary nodule Robotic-assisted transbronchial needle aspirate, transbronchial biopsies of a right lower lobe pulmonary nodule addition to a bronchioloalveolar lavage of the right lower lobe Anesthesia: MAIKELA Surgeon: Deny Marcano Estimated Blood Loss (ml): 0 Pathology: other Condition: stable Disposition: same day Operative Findings: A physical exam was performed. Informed consent was obtained from the patient after explaining all the risks (pneumothorax, life threatening bleeding, infection and adverse effects due to medications), benefits and alternatives to the procedure which the patient appeared to understand and so stated. The patient was connected to the monitoring devices. General anesthesia was induced and the patient was intubated by anesthesia. A final timeout was performed and the procedure confirmed by the attending staff bronchoscopist. The bronchoscope was inserted and the airway examined. The airway examination showed a post lobectomy stump in the right upper lobe. Examination was essentially within normal limits. No significant abnormalities noted. The flexible bronchoscope was removed and the robotic bronchoscope was inserted. Registration was completed. I next guided the robotic bronchoscope using the navigation system into the right lower lobe posterior segment. Once in proper position, the bronchoscope was frozen. The radial EBUS probe was placed through the bronchoscope and confirmed abnormal u/s images vs normal lung. A 23 gauge needle was placed through the working channel and under fluoroscopic guidance, we sampled the area thought to have the mass twice. Rapid onsite evaluation of the samples was done by pathology and the samples were adequate. Kimberly willams then used a cloud biopsy pattern with ultrasound confirmation for 4 additional passes with the needle. U/S evaluation was then used to reconfirm location. Forceps were next introduced through working channel and extended the appropriate distance and 3 transbronchial biopsies were performed using fluoroscopic guidance. The u/s probe was then reinserted to confirm location. When confirmed this process was repeated for a total of 4-6 transbronchial biopsies. 60 ml of saline was then instilled into the area of the lesion. The robotic bronchoscope was removed and the airway inspected with a flexible bronchoscope and 10 ml of effluent from the BAL was collected. The aspirate was bloody and ultimately declotted and based on that, the sample was discarded. FINDINGS: 1.The airways appeared normal 2 Successful navigation, ultrasonographic identification, and biopsies of right lower lobe pulmonary nodule 3.The the radial ultrasound view was concentric RECOMMENDATIONS: Await pathology and cytology results The referring physician will be alerted to the results when available. The patient was advised to follow up with the referring physician with the biopsy results Patient will be called with results.
--- NOTE | 2024-08-17 15:26 | FL ---
EXAMINATION TYPE: FL bronchoscopy DATE OF EXAM: 08/17/2024 3:19 PM COMPARISON: Pre Operative Images if available both CT/MRI or plain film CLINICAL INDICATION: Male, 73 years old with history of C34.90 BRONCH IN ENDO; TECHNIQUE: FL bronchoscopy, multiple fluoroscopic images provided for procedure. DAP: 4.74 mGym2 Gycm2 uGym2 cGycm2 or equivalent. FINDINGS: ION bronchoscopy images demonstrate bronchoscope terminating in the lung. No immediate complications identified, no pneumothorax identified. IMPRESSION: 1. No evidence for intraoperative complication. 2. Please see the operative/procedural note for further details. [facility], , 08/17/2024 3:23 PM
[2024-08-17 15:27] VITALS: TEMP 97
--- NOTE | 2024-08-17 15:56 | XR ---
EXAMINATION TYPE: XR chest 1V DATE OF EXAM: 08/17/2024 3:42 PM COMPARISON: Chest radiographs from 04/20/2017 CLINICAL INDICATION: Male, 73 years old with history of post bx; PHH TECHNIQUE: XR chest 1V Frontal view of the chest. FINDINGS: Lungs/Pleura: Airspace opacities in the right lung base. There is no evidence of pleural effusion, fo luh consolidation, or pneumothorax. Pulmonary vascularity: Unremarkable. Heart/mediastinum: Cardiomediastinal silhouette is unremarkable. Musculoskeletal: No acute osseous pathology. Other findings: None IMPRESSION: Regular lobe airspace opacities with low lung lines. No pneumothorax. [facility], , 08/17/2024 3:54 PM
[2024-08-17 16:15] VITALS: RESP 16
[2024-08-17 16:32] VITALS: BP 101/43; PULSE 56
== END 2024-08-17 17:01 | disposition home or self-care (01) ==
LOC: ORWHC2ENDO 11:18
PROVIDERS: ATTEND Internal Medicine Critical Care Medicine
DX: C34.90 Malignant neoplasm of unspecified part of unspecified bronchus or lung (principal); F10.20 Alcohol dependence, uncomplicated; J44.9 Chronic obstructive pulmonary disease, unspecified; I25.10 Atherosclerotic heart disease of native coronary artery without angina pectoris; M15.9 Polyosteoarthritis, unspecified; E78.00 Pure hypercholesterolemia, unspecified; I10 Essential (primary) hypertension
CPT/HCPCS: 88108; 88305; 87070; 87205; 87116; 87102; 87206; 71045; 71250; 31628; 31629; 31624; 31654; J2250; J0330; J1100; J2405; J2003; J3010; J2704; J1596; S2900

== ENCOUNTER → 2024-09-07 | Outpatient (CLI) | payer MEDICARE ==
[2024-09-07 15:11] LABS: NT-Pro-B-Type Natriuretic Pept 340 pg/mL (0-125)
[2024-09-07 16:05] LABS: ALT 23 U/L (10-49); AST 25 U/L (14-35); Albumin 4.0 g/dL (3.8-4.9); Albumin/Globulin Ratio 1.60 Ratio (1.60-3.17); Alkaline Phosphatase 104 U/L (41-126); Anion Gap 12.10 mmol/L (4.00-12.00); BUN/Creat Ratio 29.64 Ratio (12.00-20.00); Blood Urea Nitrogen 32.6 mg/dL (9.0-27.0); Calcium 9.3 mg/dL (8.7-10.3); Carbon Dioxide 24.9 mmol/L (21.6-31.8); Chloride 107 mmol/L (96-109); Cholesterol 106.00 mg/dL (0.00-200.00); Globulin 2.5 g/dL (1.6-3.3); Glucose 113 mg/dL (70-110); HDL Cholesterol 35.20 mg/dL (40.00-60.00); LDL Cholesterol,Calculated 58.1 mg/dL (0.0-131.0); Potassium 4.8 mmol/L (3.5-5.5); Prostate Specific Antigen 15.70 ng/mL (0.000-6.500); Sodium 144 mmol/L (135-145); Total Protein 6.5 g/dL (6.2-8.2); Triglycerides 63.30 mg/dL (0.00-149.00); VLDL Calculation 12.66 mg/dL (5.00-40.00)
== END | disposition home or self-care (01) ==
LOC: LABWHC1 09:05
PROVIDERS: ATTEND Thoracic Surgery (Cardiothoracic Vascular Surgery)
DX: C34.90 Malignant neoplasm of unspecified part of unspecified bronchus or lung (principal); I35.1 Nonrheumatic aortic (valve) insufficiency; I10 Essential (primary) hypertension; E78.2 Mixed hyperlipidemia
CPT/HCPCS: 36415; 80053; 80061; 83880; 84153

== ENCOUNTER → 2024-09-13 | Outpatient (CLI) | payer MEDICARE ==
--- NOTE | 2024-09-13 14:16 | NM ---
EXAMINATION TYPE: NM bone scan whole body DATE OF EXAM: 09/13/2024 2:05 PM CLINICAL INDICATION:Male, 73 years old with history of M15.9 POLYOSTEOARTHRITIS, UNSPECIFIED; COMPARISON: Plain film TECHNIQUE: Intravenous administration 25.0 mCi Tc 99m MDP followed by multiple scintigraphic images o f the appendicular and axial skeleton. Additionally, small field of view planar anterior and posterio r images of the lumbosacral spine and pelvis. Lastly, coronal, transverse, and sagittal SPECT images of the lumbosacral spine and pelvis were generated for review.Lastly, small [id number] anterior, p osterior and lateral views of the chest were submitted for review. Images acquired 3.5 hours post injection. FINDINGS: No abnormal uptake is identified within the appendicular or axial skeleton to suggest metastatic dise ase. Intense uptake is seen within left AC joint and to lesser extent the right AC joint. Scattered other more mild uptake is seen throughout the remainder of the joints. Mild degeneration uptake at the leve l L5 L4 on the right. Findings compatible with degenerative changes. No other photopenic areas or are as of increased activity are identified. Physiologic radiotracer activity is demonstrated in the kidneys and bladder. IMPRESSION: Uptake within the joints most pronounced at the left AC joint and to lesser extent the right AC joint . Nothing to suggest metastatic disease. [facility], , 09/13/2024 2:14 PM
== END | disposition home or self-care (01) ==
LOC: RADNMMAIN 09:42
PROVIDERS: ATTEND Internal Medicine Critical Care Medicine
DX: M15.9 Polyosteoarthritis, unspecified (principal)
CPT/HCPCS: 78306; A9503